=== PATIENT | female | born 1995 ===

== ENCOUNTER 2018-03-26 13:19 | Emergency (ER) | payer SELFPAY ==
[2018-03-26 13:40] VITALS: RESP 18; O2SAT 100
--- NOTE | 2018-03-26 13:45 | ED PDOC ---
HPI: Female Pain Time Seen by Provider: 03/26/18 13:45 Chief Complaint (Nursing): Abdominal Pain Chief Complaint (Provider): with pain and vomiting History Per: Patient Additional Complaint(s): 21-year-old female currently 15 weeks presents with persistent nausea and vomiting that has been present for the duration of the thus far. Patient states that vomiting has worsened in the last couple of days and cannot even keep down sips of water or Gatorade. Patient was seen at women's clinic at [facility] and was given dye creatures but this did not help. She also complains of mild abdominal pain with no vaginal bleeding. Patient is PMD: none Past Medical History Reviewed: Historical Data, Nursing Documentation, Vital Signs Vital Signs: Last Vital Signs Temp 98.4 F 03/26/18 13:35 Pulse 94 H 03/26/18 13:35 Resp 18 03/26/18 13:35 BP 99/66 L 03/26/18 13:35 Pulse Ox 100 03/26/18 13:35 - Medical History PMH: No Chronic Diseases - Surgical History Surgical History: No Surg Hx - Family History Family History: States: No Known Family Hx - Living Arrangements Living Arrangements: With Family - Social History Current smoker - smoking cessation education provided: No Alcohol: None Drugs: Denies - Home Medications Home Medications: Ambulatory Orders Medication Instructions Recorded Metoclopramide [Reglan] 10 mg PO Q6 PRN #30 tab 03/26/18 - Allergies Allergies/Adverse Reactions: Allergies Allergy/AdvReac Type Severity Reaction Status Date / Time No Known Allergies Allergy Verified 03/26/18 13:35 Review of Systems ROS Statement: Except As Marked, All Systems Reviewed And Found Negative Constitutional: Negative for: Fever Gastrointestinal: Positive for: Nausea, Vomiting, Abdominal Pain Genitourinary Female: Negative for: Dysuria, Vaginal Discharge, Vaginal Bleeding Physical Exam - Reviewed Nursing Documentation Reviewed: Yes Vital Signs Reviewed: Yes - Physical Exam Appears: Positive for: Well, Non-toxic, No Acute Distress Skin: Positive for: Normal Color. Negative for: Rash Eye Exam: Positive for: Normal appearance Cardiovascular/Chest: Positive for: Regular Rate, Rhythm Respiratory: Positive for: Normal Breath Sounds. Negative for: Wheezing, Respiratory Distress Gastrointestinal/Abdominal: Positive for: Soft, Other (Nontender gravid abdomen ). Negative for: Tenderness Back: Negative for: L CVA Tenderness, R CVA Tenderness Extremity: Positive for: Normal ROM Neurologic/Psych: Positive for: Alert, Oriented - Laboratory Results Result Diagrams: 03/26/18 15:30 03/26/18 15:30 Urine POC: Positive Urine dip results: Positive for: Leukocyte Esterase, Ketones, Protein - ECG O2 Sat by Pulse Oximetry: 100 Pulse Ox Interpretation: Normal - Other Rad OB US X-Ray: Read By Radiologist X-Ray Interpretation: 12 wk, 5 days IUP, FH 163, no abnormality noted, no free fluid Medical Decision Making Medical Decision Makin22 year old female with pain, nausea and vomiting Plan: Urine dip CBC CMP Beta Lipase IVF Pelvic OB US IV reglan Patient is aware of all diagnostic testing results, all questions answered. Patient feels much better after Reglan dose. She is tolerating sips of water. Patient given prescription for Reglan and was advised to follow-up with [facility] next week. Disposition - Clinical Impression Clinical Impression: Abdominal pain during , Hyperemesis gravidarum - Patient ED Disposition Is Patient to be Admitted: No Counseled Patient/Family Regarding: Studies Performed, Diagnosis, Need For Followup, Rx Given - Disposition Referrals: [facility] [Outside] Disposition: Routine/Home Disposition Time: 18:04 Condition: STABLE Additional Instructions: Take prescription meds as directed. Follow bland diet and drink plenty of fluids. Follow-up with [facility] in 2-3 days. Prescriptions: Metoclopramide [Reglan] 10 mg PO Q6 PRN #30 tab PRN Reason: Nausea/Vomiting Instructions: Nausea and Vomiting of , - The Fourth Month Forms: [employer] (Bulgarian) Print Language: PUERTO RICAN Results - Lab Results Lab Results: 03/26/18 03/26/18 15:30 15:30 WBC 6.2 RBC 4.14 Hgb 12.1 Hct 35.4 MCV 85.4 MCH 29.2 MCHC 34.1 RDW 13.4 Plt Count 218 MPV 8.3 Neut % (Auto) 74.0 Lymph % (Auto) 20.4 Dewitt % (Auto) 4.9 Eos % (Auto) 0.4 Baso % (Auto) 0.3 Neut # (Auto) 4.6 Lymph # (Auto) 1.3 Dewitt # (Auto) 0.3 Eos # (Auto) 0.0 Baso # (Auto) 0.0 Sodium 138 Potassium 3.9 Chloride 104 Carbon Dioxide 25 Anion Gap 13 BUN 11 Creatinine 0.6 L Est GFR ( Amer) > 60 Est GFR (Non-Af Amer) > 60 Random Glucose 88 Calcium 9.9 Total Bilirubin 0.4 AST 39 H ALT 59 H Alkaline Phosphatase 51 Total Protein 8.3 H Albumin 4.4 Globulin 3.9 Albumin/Globulin Ratio 1.1 Lipase 33
[2018-03-26] MEDS ORDERED: Sodium Chloride 0.9% 1,000 ML IV STA (14:52)
[2018-03-26 15:48] LABS: BASO % 0.3 % (0.0-2.0); EOS % 0.4 % (0.0-4.0); HEMOGLOBIN 12.1 g/dL (12.0-16.0); LYMPH # 1.3 K/uL (1.0-4.3); LYMPH % 20.4 % (20.0-40.0); MEAN CELL VOLUME 85.4 fl (81.0-99.0); MEAN CORPUSCULAR HEMOGLOBIN 29.2 pg (27.0-31.0); MEAN CORPUSCULAR HGB CONC 34.1 g/dL (33.0-37.0); MEAN PLATELET VOLUME 8.3 fl (7.2-11.7); MONO # 0.3 K/uL (0.0-0.8); MONO % 4.9 % (0.0-10.0); NEUT # 4.6 K/uL (1.8-7.0); NRBC % 0.1 % (0.0-0.0); RBC 4.14 Mil/uL (3.80-5.20); RED CELL DISTRIBUTION WIDTH 13.4 % (11.5-14.5); WHITE BLOOD COUNT 6.2 K/uL (4.8-10.8)
[2018-03-26 15:53] LABS: ALB/GLOB RATIO 1.1 (1.0-2.1); ALBUMIN 4.4 g/dL (3.5-5.0); ALT/SGPT 59 U/L (9-52); AST/SGOT 39 U/L (14-36); BLOOD UREA NITROGEN 11 mg/dl (7-17); CALCIUM 9.9 mg/dL (8.4-10.2); GFR NON-AFRICAN AMERICAN > 60; LIPASE 33 U/L (23-300)
--- NOTE | 2018-03-26 17:33 | US ---
Date of service: 03/26/2018 PROCEDURE: Limited obstetrical ultrasound HISTORY: 15 weeks, abd pain COMPARISON: None TECHNIQUE: Standard protocol for this study/examination. FINDINGS: LMP: 12/06/2017 Prior examinations from the current : None. TECHNIQUE: Real-time 2D imaging, duplex and color Doppler. FINDINGS: Cardiac activity: Present Rate: 163 BPM Measurements: [place] rump length: 6.35 cm Gestational age based on CRL 12 weeks 5 days JANICE based on LMP: 09/12/2018 JANICE based on biometry: 10/03/2018 Yolk sac not identified Cervix: No Cervical abnormalities: Negative examination for cervical dilatation or effacement. Closed cervix measuring cm Subchorionic hemorrhage: None UTERUS: cm. ADNEXA: Right: Not visible Left: Not visible Fluid in the cul-de-sac: None IMPRESSION: 12 weeks 5 days live intrauterine gestation.
[2018-03-26 18:54] VITALS: BP 110/74; PULSE 84; TEMP 98.6
== END 2018-03-26 18:56 | disposition home or self-care (01) ==
LOC: H.ER 13:19
DX: O26.892 Other specified pregnancy related conditions, second trimester (principal); O21.0 Mild hyperemesis gravidarum; Z3A.15 15 weeks gestation of pregnancy
CPT/HCPCS: 76815; 80053; 81025; 83690; 85025; 87086; 96374; 99283; J2765; J7030

== ENCOUNTER 2018-05-08 16:29 | Emergency (ER) | payer SELFPAY ==
--- NOTE | 2018-05-09 08:50 | OBDCSUM ---
Datetime: 05/08/2018 17:12 Discharge Diagnosis, Provider: False Labor - Undelivered Discharge Comment, Provider: Vaginitis - terazol 7
[2018-05-09 11:22] VITALS: BP 119/72; PULSE 89; TEMP 98.7
== END 2018-05-08 17:15 | disposition home or self-care (01) ==
LOC: H.EROB2 16:29
DX: O34.62 Maternal care for abnormality of vagina, second trimester (principal); N89.8 Other specified noninflammatory disorders of vagina; Z3A.22 22 weeks gestation of pregnancy

== ENCOUNTER 2018-09-01 13:43 | Emergency (ER) | payer SELFPAY ==
--- NOTE | 2018-09-01 13:48 | OBHP ---
Datetime: 09/01/2018 13:42 IP Adm Impression: , intrauterine ; No Active Labor IP Admit Plan: Discharge home Admit Comment, IP Provider: The patient is a 22-year-old 2 para 1 last menstrual period December 06, 2018 date of due date September last September 29, 2018. Patient presents to labor and delivery for steroids patient has an its anticipated delivery date at 37 weeks repeat patient reports good movement no vaginal bleeding no leakage of fluid Past medical history none Medications vitamins Past surgical history operative delivery No known drug allergies Social history denies alcohol tobacco use Review of systems patient denies headache chest pain shortness of breath palpitations nausea vomit ing diarrhea vaginal bleeding heat or cold intolerance easy bruisability musculoskeletal or neurologi uday complaints Intrauterine at 36 weeks Patient for steroids External monitor Observation Discharge home Pelvic Type - PN: Adequate Extremities - PN: Not Done Abdomen - PN: Normal Back - PN: Not Done Breast - PN: Not Done Lungs - PN: Normal Heart - PN: Normal Thyroid - PN: Normal Neurologic - PN: Normal HEENT - PN: Normal General - PN: Normal EGA AdmitDate IP: 36.0 Vital Signs Provider: Reviewed IP Chief Complaint: Other Genitourinary Exam: Not Done DTRs - PN: Not Done Datetime: 05/08/2018 17:01 FHR - Baseline A Provider: 140 Comments, ACOG Physical Exam: Pt is not acute distress Hear s1/s2 heard no extra heart sound Lung clear Abd: Classic surgical scar noted, mild tenderness upon deep palation of RLQ no rebound tenderness, no bal/psoas/obterator sign, BS + Pelvic No lesion noted, upon speculum exam Thick cottage cheese discharge Gestation - Est Wks by US: 22.5 Pool Provider: Negative
[2018-09-01 13:51] VITALS: BMI 30.2
[2018-09-01] MEDS ORDERED: Betamethasone Soluspan 30 mg/5mL Inj Susp IM SCH (14:00)
[2018-09-02 08:18] VITALS: BP 104/75; PULSE 106
== END 2018-09-01 14:35 | disposition home or self-care (01) ==
LOC: H.EROB2 13:43 → H.L&D 13:45 → H.EROB2 14:35
DX: O09.293 Supervision of pregnancy with other poor reproductive or obstetric history, third trimester (principal); Z87.59 Personal history of other complications of pregnancy, childbirth and the puerperium; Z3A.37 37 weeks gestation of pregnancy; Z23 Encounter for immunization
CPT/HCPCS: 96372; 99281; J0702

== ENCOUNTER 2018-09-02 13:48 | Emergency (ER) | payer SELFPAY ==
[2018-09-01 13:51] VITALS: BMI 30.2
[2018-09-02] MEDS: Betamethasone Soluspan 30 mg/5mL Inj Susp IM ONE (14:23)
[2018-09-02 18:45] VITALS: BP 103/64; PULSE 94; TEMP 98.1; O2SAT 99
== END 2018-09-02 14:30 | disposition home or self-care (01) ==
LOC: H.EROB2 13:48
DX: O26.93 Pregnancy related conditions, unspecified, third trimester (principal); O09.93 Supervision of high risk pregnancy, unspecified, third trimester; Z3A.36 36 weeks gestation of pregnancy; Z23 Encounter for immunization
CPT/HCPCS: 96372; 99281; J0702

== ENCOUNTER 2018-09-08 07:05 | Inpatient (IN) | payer MEDICAID, SELFPAY ==
[2018-09-08 07:51] VITALS: BMI 30.9
[2018-09-08] MEDS: Lactated Ringer's 1,000 ML IV ONE ×2 (07:53→08:30)
[2018-09-08 08:15] LABS: BASO % 0.4 % (0.0-2.0); EOS # 0.1 K/uL (0.0-0.7); EOS % 0.6 % (0.0-4.0); HEMOGLOBIN 10.7 g/dL (12.0-16.0); LYMPH # 2.2 K/uL (1.0-4.3); LYMPH % 21.5 % (20.0-40.0); MEAN CELL VOLUME 88.5 fl (81.0-99.0); MEAN CORPUSCULAR HEMOGLOBIN 29.9 pg (27.0-31.0); MEAN CORPUSCULAR HGB CONC 33.8 g/dL (33.0-37.0); MONO # 0.6 K/uL (0.0-0.8); MONO % 5.7 % (0.0-10.0); NEUT # 7.3 K/uL (1.8-7.0); NEUT % 71.8 % (50.0-75.0); NRBC % 0.1 % (0.0-0.0); RBC 3.56 Mil/uL (3.80-5.20); WHITE BLOOD COUNT 10.2 K/uL (4.8-10.8)
[2018-09-08] MEDS ORDERED: Lactated Ringer's 1,000 ML IV ONE (09:00)
[2018-09-08] MEDS ORDERED: ceFAZolin 2 GM in Sodium Chloride 0.9% 100 ML IVPB ONE (09:00)
[2018-09-08] MEDS ORDERED: OXYTOCIN/0.9 % NS 20 UNIT/1,000 ML BAG IV ONE (09:00)
[2018-09-08] MEDS ORDERED: Oxytocin 30 UNIT in NS 500 ml 30 UNITS/500 ML BAG IV ONE (09:00)
[2018-09-08 10:48] VITALS: RESP 18; O2SAT 100
[2018-09-08] MEDS ORDERED: Morphine 5 mg/10 ml preservative-free Inj(Duramorph) ONE (12:41)
[2018-09-08] MEDS ORDERED: Oxycodone/Acetaminophen 5/325 mg Tab PO PRN ×3 (13:43→16:55)
[2018-09-08] MEDS ORDERED: Acetaminophen-Codeine 300/30 mg Tab PO PRN ×2 (13:43→16:38)
[2018-09-08] MEDS ORDERED: Lactated Ringer's 1,000 ML IV SCH (20:15)
[2018-09-09 06:44] LABS: HEMOGLOBIN 9.5 g/dL (12.0-16.0); MEAN CELL VOLUME 88.8 fl (81.0-99.0); MEAN CORPUSCULAR HEMOGLOBIN 30.2 pg (27.0-31.0); RBC 3.13 Mil/uL (3.80-5.20); RED CELL DISTRIBUTION WIDTH 13.7 % (11.5-14.5); WHITE BLOOD COUNT 10.6 K/uL (4.8-10.8)
--- NOTE | 2018-09-09 07:24 | OP ---
PROCEDURE DATE: 09/08/2018 PREOPERATIVE DIAGNOSIS: Intrauterine at 37 weeks, history of previous classical incision. POSTOPERATIVE DIAGNOSIS: Intrauterine at 37 weeks, history of previous classical incision. OPERATION PERFORMED: Repeat delivery via vertical skin incision. SURGEON: Abelardo Alston MD GERIATRIC PERSONAL CARE AIDE: Dr. Faiza Marr. ESTIMATED BLOOD LOSS: 800 mL. URINE OUTPUT: Hernandes catheter put out approximately 100 mL of clear urine. INTRAVENOUS FLUID INTAKE: The patient received 1400 mL of D5 LR intraoperatively. OPERATIVE FINDINGS: Female infant, vertex presentation, weighing 2845 g. Normal uterus, tubes, and ovaries were identified. Dr. Faiza Marr was the assistant head cashier in the procedure. She helped create exposure, obtaining hemostasis. She was helpful in delivering the and closure of the patient. The procedure would not have been possible without her assistance. DESCRIPTION OF PROCEDURE: After informed consent was obtained, the patient was taken to the operating room where she was given spinal anesthesia. She was then prepped and draped in a normal sterile fashion with a leftward tilt. A vertical skin incision was then made with a scalpel and carried down to the underlying layer of fascia. The fascia was nicked in the midline. The fascial incision was then extended superiorly and inferiorly with good visualization of the bladder. The rectus muscles were then in the midline. The peritoneum was identified and entered sharply with the Metzenbaum scissors. The peritoneal incision was then extended superiorly and inferiorly with good visualization of the bladder. The bladder blade was then inserted. The vesicouterine peritoneum was identified and entered sharply with the Metzenbaum scissors. The incision was then extended laterally. The bladder flap was created digitally. The bladder blade was then re-adjusted and a low transverse incision was made with the scalpel. The uterine incision was then extended laterally with bandage scissors. The infant's head was then delivered atraumatically. The nose and mouth were suctioned with DeLee suction trap. The cord was clamped and cut. The was handed off to the awaiting pediatricians. The placenta was then removed manually. The uterus was exteriorized and cleared of all clots and debris. The uterine incision was repaired with 0 Vicryl in a running locked fashion. The second layer of the same suture was used to obtain excellent hemostasis. The abdomen was then copiously irrigated. The irrigant was removed with a suction device. The incision was noted to be hemostatic. The uterus was returned to the abdomen. The gutters were then cleared of all clots and debris. A mass closure was performed using PDS in a running fashion. Subcuticular stitch of 3-0 chromic was used to approximate Camper's and Padmini's fascia and then the skin was closed with gasper. All sponge, lap, needle, and instrument counts were correct x2, and the patient was taken to the recovery room in awake and stable condition. Abelardo Alston MD
--- NOTE | 2018-09-09 08:19 | OBADHP ---
Datetime: 09/02/2018 14:04 IP Chief Complaint Other: beta IM Admit Comment, IP Provider: 22 yo 36.1wk present for sec dose of betamethasone. Otherwise patie nt have no complains. Patient receiving betamethasone due to first born was on 32 week, no complicati on during , Patient denies vaginal bleed, discharge, contraction, or concern. PMH none Medications vitamins Past surgical No known drug allergies Social history denies alcohol tobacco use Review of systems negative except if mention in HPI Intrauterine at 36 weeks Patient for steroids dose [address] Pantoja PGy1 case discussed with attending Pelvic Type - PN: Not Done Extremities - PN: Normal Abdomen - PN: Normal Back - PN: Normal Breast - PN: Not Done Lungs - PN: Normal Heart - PN: Normal Thyroid - PN: Normal Neurologic - PN: Normal HEENT - PN: Normal General - PN: Normal Comments, ACOG Physical Exam: heart no extra heart sound lung clear abd nontender bs+ Vital Signs Provider: Reviewed; Within Normal Limits Genitourinary Exam: Normal DTRs - PN: Not Done IP Admit Plan: Observation/Evaluation Datetime: 09/01/2018 13:42 IP Chief Complaint: Other EGA AdmitDate IP: 36.0 IP Adm Impression: , intrauterine ; No Active Labor Datetime: 05/08/2018 17:01 FHR - Baseline A Provider: 140 Gestation - Est Wks by US: 22.5 Pool Provider: Negative
[2018-09-09] MEDS ORDERED: Multivitamin With Minerals Tab PO SCH (09:00)
[2018-09-09] MEDS: Multivitamin With Minerals Tab PO SCH (09:51)
--- NOTE | 2018-09-09 13:46 | OBPPN ---
Datetime: 09/09/2018 06:11 PP Pain Prov: Within normal limits PP Nausea Prov: Denies PP Flatus Prov: Yes PP BM Prov: No PP Heart Prov: Normal PP Lungs Prov: Normal PP Comments Phys Exam Prov: see progress note PP Impression Prov: Normal progression PP Plan Prov: Continue present management PP Progress Note Prov: S: 23 YO female , s/p at GA 37 wks. (Repeat ), toda y POD 1. Patient seen and examined at bedside this morning. Patient has no acute complaints, reports that the pain is controlled with pain medication. Patient has not started to ambulate yet after surge ry. She is tolerating oral diet. Lochia like menses in volume. +Flatus, -BM. Denies fevers, chills, dizziness, chest pain, SOB, N/V, hematuria or dysuria. VS: stable GEN: NAD Cardio: RRR, S1S2 present, no murmurs noted Lungs: clear breath sounds b/l, no wheezing Abdomen: BS+, appropriate tenderness to palpation, incision covered by dressing clean and intact. Uterus is firm and at the level of the umbilicus. Appropriate tenderness EXT: No edema, Tere's negative NEURO/PSYCH: AAOx3, no grossly focal deficits, preserved affect and mood. A/P: 23 YO female , s/p at GA 37 wks. (Repeat ), today POD 1. Pt is stable, a febrile, tolerating pain with medication, hemodynamically stable. Normal progression after . P: encouraged ambulation Percocet 5/325mg q4h Motrin 600mg po q6h for pain as per pain scale Senakot 17.2mg po QHS Encourage Continue vit Case reviewed and discussed with attending Rivka Stout MD PGY1 Patient seen and evaluated by me this am. Agree with above note. Ambulation encouraged. --Dr. Ngo Vital Signs Provider PP: Reviewed; Within Normal Limits
--- NOTE | 2018-09-10 07:18 | OBPPN ---
Datetime: 09/10/2018 05:53 PP Pain Prov: Within normal limits PP Nausea Prov: Denies PP Flatus Prov: Yes PP BM Prov: Yes PP Heart Prov: Normal PP Lungs Prov: Normal PP Extremities Prov: Normal PP Comments Phys Exam Prov: see progress note PP Impression Prov: Normal progression PP Plan Prov: Continue present management PP Progress Note Prov: S: 23 YO female , s/p at GA 37 wks. (Repeat ), toda y POD 2. Patient seen and examined at bedside this morning. Patient has no acute complaints, reports that the pain is controlled with pain medication. Patient is ambulating w/o difficulties. Pt is breas tfeeding, she is tolerating regular diet. Lochia like menses in volume. +Flatus, had BM already. Atilio es fevers, chills, dizziness, chest pain, SOB, N/V/D, hematuria or dysuria. O: VS: stable GEN: NAD Cardio: RRR, S1S2 present, no murmurs noted Lungs: clear breath sounds b/l, no wheezing Abdomen: BS+, appropriate tenderness to palpation, incision clean and well approximated with stapl es. Uterus is firm and at the level of the umbilicus. Appropriate tenderness EXT: No edema, Tere's negative NEURO/PSYCH: AAOx3, no grossly focal deficits, preserved affect and mood. A/P: 23 YO female , s/p at GA 37 wks. (Repeat ), today POD 2. Pt is stable, a febrile, pain well controlled with medication, hemodynamically stable. Normal progression after . -Ambulation encouraged -Percocet 5/325mg q4h -Motrin 600mg po q6h for pain as per pain scale -Senakot 17.2mg po QHS -Encourage -Continue vit -anticipate DC home tomorrow Case reviewed and discussed with attending Rivka Stout MD PGY1 OB Hospitalist Addendum: Pt seen and examined by me. Agree w/ above. POD 2 s/p repeat c/s, doing well. Continue routine care. Discharge home tomorrow. (ES) Vital Signs Provider PP: Reviewed
[2018-09-10] MEDS: Multivitamin With Minerals Tab PO SCH (08:40)
--- NOTE | 2018-09-10 10:26 | OBADHP ---
Datetime: 09/08/2018 11:30 Admit Comment, IP Provider: HPI: Gaby is a 23 year old at 37.0 weeks here for scheduled C-sect ion. Her surgery was scheduled for 37 weeks due to a history of a previous vertical incision in her u terus. Reports good movement, no LOF or vaginal bleeding. History Previous delivery at 32 weeks in her home country of [place] PMH Denies PSH Classical Medications PNV Allergies NKDA Social Denies tobacco, alcohol or drug use Physical Exam Vitals reviewed See exam section ASSESSMENT/PLAN: 23 year old at 37.0 weeks here for repeat , history of a previous c lassical incision. - Initiate protocol - Patient had GBS positive urine culture early in , no ROM Faiza Marr MD OB Fellow Extremities - PN: Normal Lungs - PN: Normal Heart - PN: Normal HEENT - PN: Normal General - PN: Normal Presentation-Admit: Vertex IP Fetus A Comments: Reactive NST FHR - Baseline A Provider: 130 Comments, ACOG Physical Exam: Adbomen: patient has a vertical scar extending from just superior to t he pubis to just inferior to the umbilicus Gestation - Est Wks by US: 37.0 Vital Signs Provider: Reviewed; Within Normal Limits IP Chief Complaint: Scheduled Section NICHD Variability Prov Fetus A: Moderate 6-25bpm NICHD Accel Fetus A IP Provider: [id number] NICHD Decel Fetus A IP Provider: None Genitourinary Exam: Normal EGA AdmitDate IP: 37.0 IP Adm Impression: Term, intrauterine IP Admit Plan: Admit to unit; Initiate Section protocol
[2018-09-11] MEDS ORDERED: Measles, Mumps, and Rubella 0.5 ML VIAL SC ONE (07:36)
[2018-09-11] MEDS: Multivitamin With Minerals Tab PO SCH (09:46)
--- NOTE | 2018-09-11 10:25 | OBDCSUM ---
Datetime: 09/11/2018 06:07 Discharged to, Provider: Home Follow up at, Provider: Dr Barton Disch Instr Diet: Regular Discharge Instructions, Provider: Routine instructions given Discharge Diagnosis, Provider: Term Delivered Follow up in weeks, Provider: 2 days Contraception discussed, Prov: Yes Disch Activity Restrictions: No lifting; Minimize stair-climbing; Nothing in vagina - Evan, t alec puckett Discharge Comment, Provider: 23 YO s/p C-sec of baby girl on 09/08/18 at 37 weeks EGA. : male, Wt. 2845 gm, 9/9 Post- D/C Summary: No OB complications. No complications during post- period. Lochia i s less than menses. Pt able to pass flatus, and had BM already, voiding well and able to ambulate wit hout difficulty. Tolerating regular diet w/o N/V. Fundus firm below umbilicus level. Pt is hemodynami abena stable (EBL on 800cc). H/H: 9.5/27.8 Asymptomatic anemia , hemodynamically stable Discharge Instructions given to patient: Encourage Continue with PNV 1 tab p.o q/day Ibuprofen 400 PO Q6h PRN pain Colace 100 mg BID prn constipation Ambulatory with caution, nothing per vagina/sex for 4 weeks, no heavy lifting, avoid stairs, if ex cessive bleeding or fever without relief from Tylenol go to ED ED precautions: If excessive bleeding, pain that does not get relief, fever >100.4, palpitations, SOB, CP or other concerning symptom go to the ED. PT was urged if feeling sad, mood swing, depression, neglect of baby, suicidal thoughts, homicidal thoughts go to ER or call 911 for help Follow-up at [facility] for wound check on 09/13/18 and 09/20/[address] Barton, then in 6 weeks for post - check. Contraception after Delivery: Undecided
--- NOTE | 2018-09-11 10:26 | OBPPN ---
Datetime: 09/11/2018 06:04 PP Pain Prov: Within normal limits PP Nausea Prov: Denies PP Flatus Prov: Yes PP BM Prov: Yes PP Heart Prov: Normal PP Lungs Prov: Normal PP Comments Phys Exam Prov: see note PP Impression Prov: Normal progression PP Plan Prov: Continue present management; Discharge PP Progress Note Prov: S: 23 YO female , s/p at GA 37 wks. (Repeat ), toda y POD 3. Patient seen and examined at bedside this morning. Patient has no acute complaints, reports that the pain is controlled with pain medication. Patient is ambulating w/o difficulties. Pt is breas t and bottle feeding, she is tolerating regular diet. Lochia like menses in volume. +Flatus, +BM alre manuel. Denies fevers, chills, dizziness, chest pain, SOB, N/V/D, hematuria or dysuria. VS: stable GEN: NAD Cardio: RRR, S1S2 present, no murmurs noted Lungs: clear breath sounds b/l, no wheezing Abdomen: BS+, appropriate tenderness to palpation, incision clean and well approximated. Uterus is firm and at the level of the umbilicus. Appropriate tenderness EXT: No edema, Tere's negative NEURO/PSYCH: AAOx3, no grossly focal deficits, preserved affect and mood. A/P: 23 YO female , s/p at GA 37 wks. (Repeat ), today POD 3. Pt is stable, d oing well, afebrile, tolerating pain with medication, hemodynamically stable. Normal progr ession after . DC home today -encouraged ambulation -Percocet 5/325mg q4h -Motrin 600mg po q6h for pain as per pain scale -Senakot 17.2mg po QHS -Encourage -Continue vit Case reviewed and discussed with attending Rivka Stout MD PGY1 OB Hospitalist on-call. Pt seen on rounds. Agree with note. Dishcarge home and follow up in 1-2 w KERRIEO Vital Signs Provider PP: Reviewed; Within Normal Limits
[2018-09-11 18:58] VITALS: BP 117/79; PULSE 75; TEMP 98.5
== END 2018-09-11 13:40 | disposition home or self-care (01) | DRG 540 ==
LOC: H.EROB2 07:05 → H.L&D 08:31 → H.OB/GYN 17:13
PROVIDERS: ADMIT Obstetrics & Gynecology; ATTEND Obstetrics & Gynecology
PROC: 10D00Z1 Extraction of Products of Conception, Low, Open Approach (ICD-10-PCS; principal; 2018-09-08)
PROC: 4A1HXCZ Monitoring of Products of Conception, Cardiac Rate, External Approach (ICD-10-PCS; 2018-09-08)
DX: O34.211 Maternal care for low transverse scar from previous cesarean delivery (principal); N85.8 Other specified noninflammatory disorders of uterus; Z37.0 Single live birth; O99.824 Streptococcus B carrier state complicating childbirth; Z3A.37 37 weeks gestation of pregnancy

== ENCOUNTER 2018-10-02 23:59 | Inpatient (IN) | payer MEDICAID ==
[2018-10-02 23:59] VITALS: BMI 30.9
[2018-10-03] MEDS ORDERED: Sodium Chloride 0.9% 1,000 ML IV STA (00:26)
[2018-10-03 01:14] LABS: SQUAMOUS EPITHIAL < 1 /hpf (0-5); URINE BACTERIA RARE (<OCC); URINE BILIRUBIN NEGATIVE (NEGATIVE); URINE BLOOD SMALL (NEGATIVE); URINE CLARITY SLIGHTY-CLOUDY (Clear); URINE COLOR YELLOW (YELLOW); URINE GLUCOSE (UA) NEG (NEGATIVE); URINE LEUKOCYTE ESTERASE MOD Leu/uL (Negative); URINE PROTEIN NEGATIVE (NEGATIVE); URINE UROBILINOGEN 0.2-1.0 mg/dL (0.2-1.0)
[2018-10-03 01:20] LABS: BASO % 0.4 % (0.0-2.0); EOS # 0.1 K/uL (0.0-0.7); EOS % 1.6 % (0.0-4.0); HEMOGLOBIN 12.1 g/dL (12.0-16.0); LYMPH # 2.1 K/uL (1.0-4.3); LYMPH % 28.5 % (20.0-40.0); MEAN CELL VOLUME 87.7 fl (81.0-99.0); MEAN CORPUSCULAR HEMOGLOBIN 28.6 pg (27.0-31.0); MEAN CORPUSCULAR HGB CONC 32.6 g/dL (33.0-37.0); MEAN PLATELET VOLUME 8.4 fl (7.2-11.7); MONO # 0.4 K/uL (0.0-0.8); MONO % 5.8 % (0.0-10.0); NEUT # 4.7 K/uL (1.8-7.0); NEUT % 63.7 % (50.0-75.0); NRBC % 0.1 % (0.0-0.0); RBC 4.24 Mil/uL (3.80-5.20); RED CELL DISTRIBUTION WIDTH 14.1 % (11.5-14.5); WHITE BLOOD COUNT 7.4 K/uL (4.8-10.8)
--- NOTE | 2018-10-03 01:42 | ED PDOC ---
HPI: Abdomen Time Seen by Provider: 10/03/18 00:14 Chief Complaint (Nursing): Abdominal Pain Chief Complaint (Provider): Abdominal Pain History Per: Patient History/Exam Limitations: no limitations Onset/Duration Of Symptoms: Days (3) Current Symptoms Are (Timing): Constant Pain Scale Rating Of: 9 Location Of Pain/Discomfort: RUQ, Epigastric Quality Of Discomfort: Sharp Associated Symptoms: Nausea Additional Complaint(s): 23 year old female presents to the ED for an evaluation of abdominal pain onset for 3 days. Patient is status post and she reports of sharp, constant abdominal pain which she rates 9/10. She reports the pain is radiating to her back with nausea. Otherwise, she denies fever, cough, shortness of breath, vomiting or any other symptoms. PMD: no family provider Past Medical History Reviewed: Historical Data, Nursing Documentation, Vital Signs Vital Signs: Last Vital Signs Temp 97.7 F 10/03/18 00:04 Pulse 66 10/03/18 00:04 Resp 16 10/03/18 00:04 BP 132/69 10/03/18 00:04 Pulse Ox 100 10/03/18 00:04 Primary Care Provider: FAMILY PROVIDER,NO - Medical History PMH: No Chronic Diseases Denies: Depression, Diabetes, HTN - Surgical History Surgical History: - Family History Family History: States: Unknown Family Hx - Social History Current smoker - smoking cessation education provided: No Alcohol: None Drugs: Denies - Home Medications Home Medications: Ambulatory Orders Medication Instructions Recorded Ferrous Sulfate [Feosol] 325 mg PO DAILY 10/03/18 Oxycodone HCl/Acetaminophen 5 - 325 mg PO DAILY 10/03/18 [Endocet 5-325 Tablet] - Allergies Allergies/Adverse Reactions: Allergies Allergy/AdvReac Type Severity Reaction Status Date / Time No Known Allergies Allergy Verified 10/03/18 00:04 Review of Systems ROS Statement: Except As Marked, All Systems Reviewed And Found Negative Constitutional: Negative for: Fever Cardiovascular: Negative for: Chest Pain Respiratory: Negative for: Shortness of Breath Gastrointestinal: Positive for: Nausea, Abdominal Pain. Negative for: Vomiting Physical Exam - Reviewed Nursing Documentation Reviewed: Yes Vital Signs Reviewed: Yes - Physical Exam Appears: Positive for: Uncomfortable Head Exam: Positive for: ATRAUMATIC, NORMAL INSPECTION, NORMOCEPHALIC Skin: Positive for: Normal Color, Warm, Dry. Negative for: Rash Eye Exam: Positive for: EOMI, Normal appearance, PERRL ENT: Positive for: Normal ENT Inspection Neck: Positive for: Normal, Painless ROM, Supple. Negative for: Decreased ROM Cardiovascular/Chest: Positive for: Regular Rate, Rhythm. Negative for: Murmur Respiratory: Positive for: Normal Breath Sounds. Negative for: Decreased Breath Sounds, Wheezing, Respiratory Distress Gastrointestinal/Abdominal: Positive for: Soft, Tenderness (epigastric and RUQ) Back: Positive for: Normal Inspection Extremity: Positive for: Normal ROM. Negative for: Tenderness, Pedal Edema, Deformity Neurological/Psych: Positive for: Awake, Alert, Normal Tone, Oriented (x3). Negative for: Motor/Sensory Deficits - Laboratory Results Result Diagrams: 10/03/18 12:35 10/03/18 12:35 Lab Results: Urine Color Yellow (YELLOW) 10/03/18 00:55 Urine Clarity Slighty-cloudy (Clear) 10/03/18 00:55 Urine pH 5.0 (5.0-8.0) 10/03/18 00:55 Ur Specific [place] 1.019 (1.003-1.030) 10/03/18 00:55 Urine Protein Negative mg/dL (NEGATIVE) 10/03/18 00:55 Urine Glucose (UA) Neg mg/dL (NEGATIVE) 10/03/18 00:55 Urine Ketones Negative mg/dL (NEGATIVE) 10/03/18 00:55 Urine Blood Small (NEGATIVE) 10/03/18 00:55 Urine Nitrate Negative (NEGATIVE) 10/03/18 00:55 Urine Bilirubin Negative (NEGATIVE) 10/03/18 00:55 Urine Urobilinogen 0.2-1.0 mg/dL (0.2-1.0) 10/03/18 00:55 Ur Leukocyte Esterase Mod [place]/uL (Negative) 10/03/18 00:55 Urine RBC (Auto) 5 /hpf (0-3) H 10/03/18 00:55 Urine Microscopic WBC 8 /hpf (0-5) H 10/03/18 00:55 Ur Squamous Epith Cells < 1 /hpf (0-5) 10/03/18 00:55 Urine Bacteria Rare (<OCC) 10/03/18 00:55 - ECG O2 Sat by Pulse Oximetry: 100 (RA) Pulse Ox Interpretation: Normal Medical Decision Making Medical Decision Making: Time: 24 Impression: 23yo female with epigastric and right upper quadrant pain Plan: CMP Lipase Urine ED urine dipstick CBC w/ differential Normal saline 1000 mls/hr Toradol 30mg Pepcid 20mg Heplock insertion UA Gallbladder US Reevaluation 020 Ultrasound of gallbladder. Indication: Pain. Technique: Real-time ultrasound images were obtained. Findings: Liver measures 17.2 cm. Normal gallbladder wall thickness measuring 2 mm. Distended gallbladder. Cholelithiasis. Sludge in the gallbladder. Negative sonographic Scales. Unremarkable pancreas. Unremarkable aorta. Unremarkable IVC. Unremarkable right kidney. Dilated common bile duct measuring 11 mm. Suspected debris/stones in the distal common bile duct. Impression: Cholelithiasis. Developing acute cholecystitis. Choledocholithiasis. Electronically signed on October 03, 2018 2:01:43 AM EDT by: Cassie Henderson M.D., Certified by ABR, MSK, Neuroradiology [id number] Aleman who advised medical admit with surgical consult vice president supply chain, Dr. Disla at bedside for consult Patient diagnosed with acute cholecystitis and choledocholithiasis and case referred to Dr. Londono for admission. Labs present no clinically significant abnormalities with the exceptions of LFTs and lipase Scribe Attestation: Documented by Colton Wheeler, acting as a scribe for Marck Ko MD Provider Scribe Attestation: All medical record entries made by the Scribe were at my direction and pers onally dictated by me. I have reviewed the chart and agree that the record accurately reflects my personal performance of the history, physical exam, medical decision making, and the department course for this patient. I have also personally directed, reviewed, and agree with the discharge instructions and disposition. Disposition - Clinical Impression Clinical Impression: Cholecystitis - Patient ED Disposition Is Patient to be Admitted: Yes - Disposition Disposition Time: 02:46 Condition: FAIR
[2018-10-03 01:51] LABS: ALB/GLOB RATIO 1.4 (1.0-2.1); ALBUMIN 4.5 g/dL (3.5-5.0); ALT/SGPT 165 U/L (9-52); AST/SGOT 97 U/L (14-36); BLOOD UREA NITROGEN 17 mg/dl (7-17); CALCIUM 9.6 mg/dL (8.4-10.2); GFR NON-AFRICAN AMERICAN > 60; LIPASE 548 U/L (23-300)
--- NOTE | 2018-10-03 02:48 | CP.PCM.CON ---
History of Present Illness - History of Present Illness History of Present Illness: General Surgery Consult for Dr. Aleman Reason for consult: Abd pain, cholelithiasis, choledolcholithiasis, possible gallstone pancreatitis 23 F with no significant PMH presents to [facility] for complaint of abd pain. Patient was seen and evaluated in the ED. Patient states that she has had epigastric and RUQ pain for 3 days which began . Patient states that she has had similar pain to lesser extent especially during . Over the last 3 days pain had gotten progressively worse. She rates pain as moderate to severe located in epigastrium radiating to RUQ. She desribes it as constant and sharp. Patient admits to associated nausea/vomiting with NBNB emesis. She reports that food/drinks aggravates her symptoms while nothing specifically alleviates them. Patient recently had a on 09/08. She is currently breast feeding. Also admits to chills but denies fevers, cp, SOB, palpitations, diarrhea, constipatio n, urinary symptoms. PMD: [facility] OBGYN: Dr. Bangura, post appt on 10/20 PMH: Denies PSH: x 2 ALL: NKDA Social: Denies smoking, EtOH or illicit drug use; currently breast feeding Review of Systems - Review of Systems All systems: reviewed and no additional remarkable complaints except (as per HPI) Past Patient History - Past Social History Alcohol: None Drugs: Denies - CARDIAC Hx Hypertension: No - PSYCHIATRIC Hx Depression: No Meds Allergies/Adverse Reactions: Allergies Allergy/AdvReac Type Severity Reaction Status Date / Time No Known Allergies Allergy Verified 10/03/18 00:04 Physical Exam - Constitutional Appears: Well, Non-toxic, No Acute Distress - Head Exam Head Exam: ATRAUMATIC, NORMOCEPHALIC - Eye Exam Eye Exam: EOMI, Normal appearance Pupil Exam: PERRL - ENT Exam ENT Exam: Mucous Membranes Moist - Respiratory Exam Respiratory Exam: NORMAL BREATHING PATTERN - Cardiovascular Exam Cardiovascular Exam: REGULAR RHYTHM - GI/Abdominal Exam GI & Abdominal Exam: Normal Bowel Sounds, Soft, Tenderness (Epigastrium/RUQ). absent: Distended, Firm, Guarding, Hernia, Rebound, Rigid Additional comments: +Scales's sign - Extremities Exam Extremities exam: Positive for: normal capillary refill, pedal pulses present. Negative for: calf tenderness - Back Exam Back exam: absent: CVA tenderness (L), CVA tenderness (R) - Neurological Exam Neurological exam: Alert, CN II-XII Intact, Oriented x3 - Psychiatric Exam Psychiatric exam: Normal Affect, Normal Mood - Skin Skin Exam: Dry, Intact, Normal Color, Warm Results - Vital Signs Recent Vital Signs: Last Vital Signs Temp 97.7 F 10/03/18 00:04 Pulse 66 10/03/18 00:04 Resp 16 10/03/18 00:04 BP 132/69 10/03/18 00:04 Pulse Ox 100 10/03/18 02:04 - Labs Result Diagrams: 10/03/18 01:02 10/03/18 01:02 Labs: Laboratory Results - last 24 hr 10/03/18 10/03/18 10/03/18 00:55 01:02 01:02 WBC 7.4 RBC 4.24 Hgb 12.1 D Hct 37.2 MCV 87.7 MCH 28.6 MCHC 32.6 L RDW 14.1 Plt Count 254 MPV 8.4 Neut % (Auto) 63.7 Lymph % (Auto) 28.5 [place] % (Auto) 5.8 Eos % (Auto) 1.6 Baso % (Auto) 0.4 Neut # (Auto) 4.7 Lymph # (Auto) 2.1 [place] # (Auto) 0.4 Eos # (Auto) 0.1 Baso # (Auto) 0.0 Sodium 137 Potassium 4.0 Chloride 100 Carbon Dioxide 26 Anion Gap 15 BUN 17 Creatinine 0.8 Est GFR ( Amer) > 60 Est GFR (Non-Af Amer) > 60 Random Glucose 89 Calcium 9.6 Total Bilirubin 0.9 AST 97 H D ALT 165 H D Alkaline Phosphatase 236 H D Total Protein 7.7 Albumin 4.5 Globulin 3.2 Albumin/Globulin Ratio 1.4 Lipase 548 H Urine Color Yellow Urine Clarity Slighty-cloudy Urine pH 5.0 Ur Specific [place] 1.019 Urine Protein Negative Urine Glucose (UA) Neg Urine Ketones Negative Urine Blood Small Urine Nitrate Negative Urine Bilirubin Negative Urine Urobilinogen 0.2-1.0 Ur Leukocyte Esterase Mod Urine RBC (Auto) 5 H Urine Microscopic WBC 8 H Ur Squamous Epith Cells < 1 Urine Bacteria Rare Assessment & Plan - Assessment and Plan (Free Text) Assessment: 23 F who presents with RUQ/epigastric Abd pain, found to have cholelithiasis and choledolcholithiasis on ABUS with mildly elevated lipase due to suspected gallstone pancreatitis Plan: -NPO -IVF -IV abx -PAin control -Anti-emetics PRN -Trend LFTs -f/u GGT -f/u repeat lipase -Possible OR for laparoscopic cholecystectomy -Further recommendations as per Dr. Ash Disla PGY2 - Date & Time Date: 10/03/18 Time: 03:00
[2018-10-03] MEDS ORDERED: Piperacillin/Tazobact 3.375 GM in Sodium Chloride 0.9% 100 ML IV STA (03:18)
[2018-10-03] MEDS ORDERED: Piperacillin/Tazobact 3.375 gm Inj IVPB ONE (03:42)
[2018-10-03] MEDS: Lactated Ringer's 1,000 ML IV SCH ×4 (04:23→21:37)
--- NOTE | 2018-10-03 04:27 | CP.PCM.HP ---
<Prabha Grace - Last Filed: 10/03/18 04:07> History of Present Illness - History of Present Illness History of Present Illness: Pt is a 23 y/o female s/p repeat C section on 09/08/18, presents to ED with complaints of Epigastric and RUQ abdominal pain x3 days associated with nausea and chills. Pt denies fever, diarrhea, dysuria, cp, sob. PMD: none OBGYN: Dr. Bangura, as post appt on 10/20 PMH: Denies PsurgHx: 2 C sections NKDA Social: Denies smoking, EOTH or drug use, currently breast feeding Present on Admission - Present on Admission Any Indicators Present on Admission: No History of DVT/PE: No History of Uncontrolled Diabetes: No Urinary Catheter: No Decubitus Ulcer Present: No Past Patient History - Past Social History Alcohol: None Drugs: Denies - CARDIAC Hx Hypertension: No - PSYCHIATRIC Hx Depression: No Meds Allergies/Adverse Reactions: Allergies Allergy/AdvReac Type Severity Reaction Status Date / Time No Known Allergies Allergy Verified 10/03/18 00:04 Physical Exam - Constitutional Appears: No Acute Distress - Head Exam Head Exam: NORMAL INSPECTION - Eye Exam Eye Exam: Normal appearance. absent: Scleral icterus - ENT Exam ENT Exam: Mucous Membranes Moist - Respiratory Exam Respiratory Exam: Clear to Auscultation Bilateral. absent: Rales, Wheezes - Cardiovascular Exam Cardiovascular Exam: REGULAR RHYTHM, +S1, +S2. absent: Systolic Murmur - GI/Abdominal Exam GI & Abdominal Exam: Normal Bowel Sounds, Soft, Tenderness (Epigastric, RUQ, (+) [place]). absent: Distended, Guarding Additional comments: Midline c section scar, well healed - Extremities Exam Extremities exam: Negative for: pedal edema - Neurological Exam Neurological exam: Alert, Oriented x3 - Psychiatric Exam Psychiatric exam: Normal Affect Results - Vital Signs Recent Vital Signs: Last Vital Signs Temp 97.7 F 10/03/18 00:04 Pulse 66 10/03/18 00:04 Resp 16 10/03/18 00:04 BP 132/69 10/03/18 00:04 Pulse Ox 100 10/03/18 03:45 - Labs Result Diagrams: 10/03/18 01:02 10/03/18 01:02 Labs: Laboratory Results - last 24 hr 10/03/18 10/03/18 10/03/18 00:55 01:02 01:02 WBC 7.4 RBC 4.24 Hgb 12.1 D Hct 37.2 MCV 87.7 MCH 28.6 MCHC 32.6 L RDW 14.1 Plt Count 254 MPV 8.4 Neut % (Auto) 63.7 Lymph % (Auto) 28.5 [place] % (Auto) 5.8 Eos % (Auto) 1.6 Baso % (Auto) 0.4 Neut # (Auto) 4.7 Lymph # (Auto) 2.1 [place] # (Auto) 0.4 Eos # (Auto) 0.1 Baso # (Auto) 0.0 Sodium 137 Potassium 4.0 Chloride 100 Carbon Dioxide 26 Anion Gap 15 BUN 17 Creatinine 0.8 Est GFR ( Amer) > 60 Est GFR (Non-Af Amer) > 60 Random Glucose 89 Calcium 9.6 Total Bilirubin 0.9 AST 97 H D ALT 165 H D Alkaline Phosphatase 236 H D Total Protein 7.7 Albumin 4.5 Globulin 3.2 Albumin/Globulin Ratio 1.4 Lipase 548 H Urine Color Yellow Urine Clarity Slighty-cloudy Urine pH 5.0 Ur Specific [place] 1.019 Urine Protein Negative Urine Glucose (UA) Neg Urine Ketones Negative Urine Blood Small Urine Nitrate Negative Urine Bilirubin Negative Urine Urobilinogen 0.2-1.0 Ur Leukocyte Esterase Mod Urine RBC (Auto) 5 H Urine Microscopic WBC 8 H Ur Squamous Epith Cells < 1 Urine Bacteria Rare Assessment & Plan - Assessment and Plan (Free Text) Assessment: Pt is a 23 y/o female s/p repeat C section on 09/08/18, presents to ED with complaints of Epigastric and RUQ abdominal pain x3 days associated with nausea and chills admitted for Acute Cholecystitis. #Abdominal Pain 2/2 Acute Cholecystitis and Choledocolithiasis - Gall bladder US: Distended gallbladder, dilated CBD 11mm w/ suspected stone in distal CBD, pancreas unremarkable - No systemic signs of infection - AST 97, ALT 165, ALP 236, Lipase 548, T.Bili 0.9 - Surgery Consulted - GI Consulted (may require ERCP if CBD acutely obstructed) - Zosyn - LR at 200cc/hr - Pain management - Zofran prn - NPO for now # S/P C section - Breast feeding, pt advised to pump and dump for now while on Zosyn - Manual Breast Pump ordered Case discussed with Dr. Bry Grace, PGY2 <Jarod Londono - Last Filed: 10/03/18 07:05> Results - Vital Signs Recent Vital Signs: Last Vital Signs Temp 98.3 F 10/03/18 05:08 Pulse 65 10/03/18 05:40 Resp 18 10/03/18 05:40 BP 118/70 10/03/18 05:08 Pulse Ox 100 10/03/18 05:40 - Labs Result Diagrams: 10/03/18 01:02 10/03/18 01:02 Labs: Laboratory Results - last 24 hr 10/03/18 10/03/18 10/03/18 00:55 01:02 01:02 WBC 7.4 RBC 4.24 Hgb 12.1 D Hct 37.2 MCV 87.7 MCH 28.6 MCHC 32.6 L RDW 14.1 Plt Count 254 MPV 8.4 Neut % (Auto) 63.7 Lymph % (Auto) 28.5 [place] % (Auto) 5.8 Eos % (Auto) 1.6 Baso % (Auto) 0.4 Neut # (Auto) 4.7 Lymph # (Auto) 2.1 [place] # (Auto) 0.4 Eos # (Auto) 0.1 Baso # (Auto) 0.0 Sodium 137 Potassium 4.0 Chloride 100 Carbon Dioxide 26 Anion Gap 15 BUN 17 Creatinine 0.8 Est GFR ( Amer) > 60 Est GFR (Non-Af Amer) > 60 Random Glucose 89 Calcium 9.6 Total Bilirubin 0.9 AST 97 H D ALT 165 H D Alkaline Phosphatase 236 H D Total Protein 7.7 Albumin 4.5 Globulin 3.2 Albumin/Globulin Ratio 1.4 Lipase 548 H Urine Color Yellow Urine Clarity Slighty-cloudy Urine pH 5.0 Ur Specific [place] 1.019 Urine Protein Negative Urine Glucose (UA) Neg Urine Ketones Negative Urine Blood Small Urine Nitrate Negative Urine Bilirubin Negative Urine Urobilinogen 0.2-1.0 Ur Leukocyte Esterase Mod Urine RBC (Auto) 5 H Urine Microscopic WBC 8 H Ur Squamous Epith Cells < 1 Urine Bacteria Rare Attending/Attestation - Attestation I have personally seen and examined this patient.: Yes I have fully participated in the care of the patient.: Yes I have reviewed all pertinent clinical information: Yes Notes (Text): 10/03/18 06:59 I saw, examined and discussed this patient with Dr Grace. I agree with the assess and plan outlined. This is a 23 years old female with one month hx of a Cesarian Delivery, comes with 3 days of epigastric and RUQ pain radiating to the back associated with nausea. The abdominal UltraSound showed early Cholecystitis with Choledocholithiasis and dilated common bile duct. Surgery and GI consulted NPO and Zosyn started with IV fluids and pain management Jarod Londono MD
[2018-10-03] MEDS: Piperacillin/Tazobact 3.375 GM in Sodium Chloride 0.9% 100 ML IVPB SCH ×3 (09:39→21:37)
[2018-10-03 12:48] LABS: BASO % 0.5 % (0.0-2.0); EOS # 0.1 K/uL (0.0-0.7); EOS % 2.4 % (0.0-4.0); HEMOGLOBIN 11.2 g/dL (12.0-16.0); LYMPH # 1.6 K/uL (1.0-4.3); LYMPH % 34.9 % (20.0-40.0); MEAN CORPUSCULAR HGB CONC 33.3 g/dL (33.0-37.0); MEAN PLATELET VOLUME 8.7 fl (7.2-11.7); MONO # 0.3 K/uL (0.0-0.8); MONO % 7.3 % (0.0-10.0); NEUT # 2.6 K/uL (1.8-7.0); NEUT % 54.9 % (50.0-75.0); NRBC % 0.1 % (0.0-0.0); RBC 3.86 Mil/uL (3.80-5.20); WHITE BLOOD COUNT 4.7 K/uL (4.8-10.8)
[2018-10-03 12:54] LABS: INR 1.1
[2018-10-03 12:56] LABS: PARTIAL THROMBOPLASTIN TIME 40.2 Seconds (25.6-37.1)
[2018-10-03 13:45] LABS: ALB/GLOB RATIO 1.2 (1.0-2.1); ALBUMIN 3.7 g/dL (3.5-5.0); ALT/SGPT 151 U/L (9-52); AMYLASE 279 U/L (30-110); AST/SGOT 92 U/L (14-36); BLOOD UREA NITROGEN 12 mg/dl (7-17); CALCIUM 8.9 mg/dL (8.4-10.2); GFR NON-AFRICAN AMERICAN > 60; LIPASE 701 U/L (23-300)
--- NOTE | 2018-10-03 18:10 | US ---
Date of service: 10/03/2018 HISTORY: Abdominal pain COMPARISON: None. TECHNIQUE: Sonographic evaluation of the right upper quadrant of the abdomen. FINDINGS: LIVER: Measures 17.2 cm in length. Normal echogenicity of the liver parenchyma. No mass. No intrahepatic bile duct dilatation.. Portal vein exhibits hepatopetal wall GALLBLADDER: Cholelithiasis technologist notation indicates positive sonographic Scales sign COMMON BILE DUCT: CBD is dilated measuring approximately 1.1 cm which appears to contain echogenic debris (possible choledocholithiasis) PANCREAS: Unremarkable as visualized. No mass. No ductal dilatation. RIGHT KIDNEY: Measures 11.8 x 3.4 x 3.1 cm in length. Normal echogenicity. No calculus, mass, or hydronephrosis. AORTA: No aneurysmal dilatation. IVC: Unremarkable. OTHER FINDINGS: None . IMPRESSION: Cholelithiasis with positive sonographic Scales sign reported. Dilated common bile duct which appears to contain echogenic debris of (possible choledocholithiasis)
[2018-10-03 20:05] LABS: GAMMA GLUTAMYL TRANSPEPTIDASE 297 U/L (8-78)
[2018-10-04] MEDS: Lactated Ringer's 1,000 ML IV SCH ×5 (03:01→21:08)
[2018-10-04] MEDS: Piperacillin/Tazobact 3.375 GM in Sodium Chloride 0.9% 100 ML IVPB SCH ×4 (03:04→21:05)
[2018-10-04 07:05] LABS: BASO % 0.4 % (0.0-2.0); EOS # 0.1 K/uL (0.0-0.7); EOS % 2.3 % (0.0-4.0); HEMOGLOBIN 12.8 g/dL (12.0-16.0); LYMPH # 2.2 K/uL (1.0-4.3); LYMPH % 41.3 % (20.0-40.0); MEAN CELL VOLUME 87.2 fl (81.0-99.0); MEAN CORPUSCULAR HEMOGLOBIN 29.1 pg (27.0-31.0); MEAN CORPUSCULAR HGB CONC 33.3 g/dL (33.0-37.0); MEAN PLATELET VOLUME 8.9 fl (7.2-11.7); MONO # 0.3 K/uL (0.0-0.8); MONO % 5.8 % (0.0-10.0); NEUT # 2.7 K/uL (1.8-7.0); NEUT % 50.2 % (50.0-75.0); NRBC % 0.1 % (0.0-0.0); RBC 4.4 Mil/uL (3.80-5.20); RED CELL DISTRIBUTION WIDTH 13.8 % (11.5-14.5); WHITE BLOOD COUNT 5.4 K/uL (4.8-10.8)
[2018-10-04 07:34] LABS: ALB/GLOB RATIO 1.4 (1.0-2.1); ALT/SGPT 122 U/L (9-52); AST/SGOT 46 U/L (14-36); BLOOD UREA NITROGEN 8 mg/dl (7-17); CALCIUM 9.6 mg/dL (8.4-10.2); GFR NON-AFRICAN AMERICAN > 60
--- NOTE | 2018-10-04 07:51 | CP.PCM.PN ---
Subjective - Date & Time of Evaluation Date of Evaluation: 10/04/18 Time of Evaluation: 07:50 - Subjective Subjective: General surgery progress note for Dr. Shanice Geiger, PGY-2 Pt seen/examined Pt reports abdominal pain much improved today. Denies N & V, F & C, SOB, CP. No other complaints at this time. Objective - Vital Signs/Intake and Output Vital Signs (last 24 hours): Temp Pulse Resp BP Pulse Ox 97.8 F 68 18 121/77 100 10/04/18 00:01 10/04/18 00:01 10/04/18 00:01 10/04/18 00:01 10/04/18 01:04 - Medications Medications: Current Medications Lactated Ringer's (Lactated Ringer's) 1,000 mls @ 200 mls/hr IV .Q5H MANFRED Last Admin: 10/04/18 03:01 Dose: 200 mls/hr Piperacillin Sod/Tazobactam (Sod 3.375 gm/ Sodium Chloride) 100 mls @ 100 mls/hr IVPB Q6H MANFRED; Protocol Last Admin: 10/04/18 03:04 Dose: 100 mls/hr Morphine Sulfate (Morphine) 2 mg IVP Q4 PRN PRN Reason: Pain, moderate (4-7) Last Admin: 10/04/18 03:00 Dose: 2 mg Ondansetron HCl (Zofran Inj) 4 mg IVP Q6 PRN PRN Reason: Nausea/Vomiting - Labs Labs: 10/04/18 06:05 10/04/18 06:05 PT 12.0 Seconds (9.8-13.1) 10/03/18 12:35 INR 1.1 10/03/18 12:35 APTT 40.2 Seconds (25.6-37.1) H 10/03/18 12:35 - Constitutional Appears: Non-toxic, No Acute Distress - Head Exam Head Exam: ATRAUMATIC, NORMAL INSPECTION, NORMOCEPHALIC - Eye Exam Eye Exam: EOMI, Normal appearance - ENT Exam ENT Exam: Mucous Membranes Moist, Normal Exam - Neck Exam Neck Exam: Full ROM - Respiratory Exam Respiratory Exam: Clear to Ausculation Bilateral, NORMAL BREATHING PATTERN - Cardiovascular Exam Cardiovascular Exam: REGULAR RHYTHM, +S1, +S2 - GI/Abdominal Exam GI & Abdominal Exam: Soft, Tenderness (epigastric, mild). absent: Distended, Firm, Guarding, Rigid - Extremities Exam Extremities Exam: Normal Inspection - Neurological Exam Neurological Exam: Alert, Awake, CN II-XII Intact, Oriented x3 - Psychiatric Exam Psychiatric exam: Normal Affect, Normal Mood - Skin Skin Exam: Dry, Intact, Normal Color, Warm Assessment and Plan - Assessment and Plan (Free Text) Assessment: 23F w/cholelithiasis, probable choledocholithiasis, gallstone pancreatitis - improving Plan: IVF Pain control NPO Anti-emetics PRN Monitor LFTs GGT Repeat lipase Likely will need OR prior to d/c after pancreatitis resolves Recommend GI consult Further recommendations as per attending Will HARPER Geiger, PGY-2
--- NOTE | 2018-10-04 12:10 | CP.PCM.PN ---
Subjective - Date & Time of Evaluation Date of Evaluation: 10/04/18 Time of Evaluation: 11:55 - Subjective Subjective: Patient seen and examined this AM at bedside. Patient c/o epigastric pain and RUQ and mild nausea, patient states that feels mild improvement compared to yesterday. Patient denies [place], CP, SOB, fever, chills or other acute complaint at this time. Objective - Vital Signs/Intake and Output Vital Signs (last 24 hours): Temp Pulse Resp BP Pulse Ox 97.7 F 92 H 20 122/70 95 10/04/18 08:30 10/04/18 08:30 10/04/18 08:30 10/04/18 08:30 10/04/18 08:30 - Medications Medications: Current Medications Ferrous Sulfate (Feosol) 325 mg PO DAILY MANFRED Last Admin: 10/04/18 10:03 Dose: 325 mg Lactated Ringer's (Lactated Ringer's) 1,000 mls @ 200 mls/hr IV .Q5H MANFRED Last Admin: 10/04/18 10:03 Dose: 200 mls/hr Piperacillin Sod/Tazobactam (Sod 3.375 gm/ Sodium Chloride) 100 mls @ 100 mls/hr IVPB Q6H MANFRED; Protocol Last Admin: 10/04/18 09:58 Dose: 100 mls/hr Morphine Sulfate (Morphine) 2 mg IVP Q4 PRN PRN Reason: Pain, moderate (4-7) Last Admin: 10/04/18 03:00 Dose: 2 mg Ondansetron HCl (Zofran Inj) 4 mg IVP Q6 PRN PRN Reason: Nausea/Vomiting - Labs Labs: 10/04/18 06:05 10/04/18 06:05 PT 12.0 Seconds (9.8-13.1) 10/03/18 12:35 INR 1.1 10/03/18 12:35 APTT 40.2 Seconds (25.6-37.1) H 10/03/18 12:35 - Additional Findings Additional findings: - Constitutional Appears: No Acute Distress - Head Exam Head Exam: NORMAL INSPECTION - Eye Exam Eye Exam: Normal appearance. absent: Scleral icterus - ENT Exam ENT Exam: Mucous Membranes Moist - Respiratory Exam Respiratory Exam: Clear to Auscultation Bilateral. absent: Rales, Wheezes - Cardiovascular Exam Cardiovascular Exam: REGULAR RHYTHM, +S1, +S2. absent: Systolic Murmur - GI/Abdominal Exam GI & Abdominal Exam: Normal Bowel Sounds, Soft, Tenderness (Epigastric, RUQ, (+) [place]). absent: Distended, Guarding - Extremities Exam Extremities exam: Negative for: pedal edema - Neurological Exam Neurological exam: Alert, Oriented x3 - Psychiatric Exam Psychiatric exam: Normal Affect Assessment and Plan - Assessment and Plan (Free Text) Assessment: Pt is a 23 y/o female s/p repeat C section on 09/08/18, presents to ED with complaints of Epigastric and RUQ abdominal pain x3 days associated with nausea and chills admitted for Acute Cholecystitis. #Abdominal Pain 2/2 Acute Cholecystitis and Choledocolithiasis - Gall bladder US: Distended gallbladder, dilated CBD 11mm w/ suspected stone in distal CBD, pancreas unremarkable - No systemic signs of infection - AST 46, ALT 122, ALP 186, Lipase 548<701, T.Bili 0.7 - Surgery Consulted - GI Consulted -MRCP done, pending final result - Zosyn - NS at 100 ml/hr - Pain management - Zofran prn - NPO for now # S/P C section - Breast feeding, pt advised to pump and dump for now while on Zosyn - Manual Breast Pump ordered
--- NOTE | 2018-10-04 14:58 | MRI ---
Date of service: 10/04/2018 PROCEDURE: Magnetic Resonance Cholangiopancreatography HISTORY: Suspected choledocholithiasis COMPARISON: None available. TECHNIQUE: Multiplanar, multisequence MR images of the abdomen were obtained, including heavily T2 weighted MRCP images of the biliary system. Rotating maximum intensity projection images of the biliary system were generated. FINDINGS: MRCP: The common bile duct is of a normal caliber. No evidence of choledocholithiasis. No intrahepatic biliary ductal dilatation. LIVER: Unremarkable. GALLBLADDER: Small gallstones are seen. SPLEEN: Unremarkable. PANCREAS: Unremarkable. ADRENALS: Unremarkable. KIDNEYS: Unremarkable. AORTA: No aneurysm. ASCITES: None. OTHER FINDINGS: None. IMPRESSION: Small gallstones. No evidence of common duct stones or obstruction
[2018-10-05] MEDS: Lactated Ringer's 1,000 ML IV SCH ×6 (02:57→23:16)
[2018-10-05] MEDS: Piperacillin/Tazobact 3.375 GM in Sodium Chloride 0.9% 100 ML IVPB SCH ×4 (03:00→22:00)
[2018-10-05 06:59] LABS: HEMOGLOBIN 11.2 g/dL (12.0-16.0); MEAN CELL VOLUME 87.8 fl (81.0-99.0); MEAN CORPUSCULAR HEMOGLOBIN 29.3 pg (27.0-31.0); MEAN CORPUSCULAR HGB CONC 33.3 g/dL (33.0-37.0); RBC 3.81 Mil/uL (3.80-5.20); RED CELL DISTRIBUTION WIDTH 13.8 % (11.5-14.5); WHITE BLOOD COUNT 5.1 K/uL (4.8-10.8)
[2018-10-05 07:00] LABS: INR 1.1; PROTHROMBIN TIME 12.7 Seconds (9.8-13.1)
[2018-10-05 07:03] LABS: PARTIAL THROMBOPLASTIN TIME 40.3 Seconds (25.6-37.1)
[2018-10-05 07:28] LABS: ALB/GLOB RATIO 1.3 (1.0-2.1); ALBUMIN 3.6 g/dL (3.5-5.0); ALT/SGPT 89 U/L (9-52); AST/SGOT 38 U/L (14-36); BLOOD UREA NITROGEN 8 mg/dl (7-17); CALCIUM 9.1 mg/dL (8.4-10.2); GFR NON-AFRICAN AMERICAN > 60
--- NOTE | 2018-10-05 10:47 | CP.PCM.PN ---
Subjective - Date & Time of Evaluation Date of Evaluation: 10/05/18 Time of Evaluation: 08:35 - Subjective Subjective: Patient seen and examined this AM, NAD. Patient still c/o epigastric and RUQ mild to moderate with sltly btter than prior day. Denies [place], N/V, chills or fever at present. Afebrile. Patient continues NPO pending possible lap cholecystectomy by surgical team today. Objective - Vital Signs/Intake and Output Vital Signs (last 24 hours): Temp Pulse Resp BP Pulse Ox 97.8 F 45 L 20 130/72 99 10/05/18 08:06 10/05/18 08:06 10/05/18 08:06 10/05/18 08:06 10/05/18 08:06 - Medications Medications: Current Medications Ferrous Sulfate (Feosol) 325 mg PO DAILY [facility] Last Admin: 10/05/18 08:25 Dose: Not Given Lactated Ringer's (Lactated Ringer's) 1,000 mls @ 200 mls/hr IV .Q5H [facility] Last Admin: 10/05/18 09:26 Dose: 200 mls/hr Piperacillin Sod/Tazobactam (Sod 3.375 gm/ Sodium Chloride) 100 mls @ 100 mls/hr IVPB Q6H [facility]; Protocol Last Admin: 10/05/18 09:24 Dose: 100 mls/hr Morphine Sulfate (Morphine) 2 mg IVP Q4 PRN PRN Reason: Pain, moderate (4-7) Last Admin: 10/05/18 02:55 Dose: 2 mg Ondansetron HCl (Zofran Inj) 4 mg IVP Q6 PRN PRN Reason: Nausea/Vomiting - Labs Labs: 10/05/18 05:20 10/05/18 05:20 PT 12.7 Seconds (9.8-13.1) 10/05/18 05:20 INR 1.1 10/05/18 05:20 APTT 40.3 Seconds (25.6-37.1) H 10/05/18 05:20 - Additional Findings Additional findings: - Additional Findings Additional findings: - Constitutional Appears: No Acute Distress - Head Exam Head Exam: NORMAL INSPECTION - Eye Exam Eye Exam: Normal appearance. absent: Scleral icterus - ENT Exam ENT Exam: Mucous Membranes Moist - Respiratory Exam Respiratory Exam: Clear to Auscultation Bilateral. absent: Rales, Wheezes - Cardiovascular Exam Cardiovascular Exam: REGULAR RHYTHM, +S1, +S2. absent: Systolic Murmur - GI/Abdominal Exam GI & Abdominal Exam: Normal Bowel Sounds, Soft, Tenderness Epigastric, RUQ, (+) [place]). absent: Distended, Guarding - Extremities Exam Extremities exam: Negative for: pedal edema - Neurological Exam Neurological exam: Alert, Oriented x3 - Psychiatric Exam Psychiatric exam: Normal Affect Assessment and Plan - Assessment and Plan (Free Text) Assessment: Pt is a 23 y/o female s/p repeat C section on 09/08/18, presents to ED with complaints of Epigastric and RUQ abdominal pain x3 days associated with nausea and chills admitted for Acute Cholecystitis. #Abdominal Pain 2/2 Acute Cholecystitis and Choledocolithiasis - Gall bladder US: Distended gallbladder, dilated CBD 11mm w/ suspected stone in distal CBD, pancreas unremarkable -Elevated Lipase unlikely Pancreatitis - No systemic signs of infection - AST 38, ALT 89 trending down slowly, ALP 181, Lipase 548<701, T.Bili 0.6 - Surgery Consulted, anticipating Lap santa today - GI Consulted -MRCP done, showed no CBD stone - Zosyn - NS at 100 ml/hr - Pain management - Zofran prn - NPO for now # S/P C section - Breast feeding, pt advised to pump and dump for now while on Zosyn - Manual Breast Pump ordered
[2018-10-05] MEDS ORDERED: Propofol 10 mg/ml Inj (20 ML) ONE (12:40)
[2018-10-05] MEDS ORDERED: Succinylcholine Chloride 20 mg/ml Syr (5 ml) IV ONE (12:40)
[2018-10-05] MEDS ORDERED: Rocuronium 10 mg/ml (5 ml) ONE (12:40)
[2018-10-05] MEDS ORDERED: Lidocaine 4% (Laryng-O-Jet) Kit MM ONE (12:52)
[2018-10-05] MEDS ORDERED: Midazolam 2 MG/2 ML VIAL ONE (12:52)
[2018-10-05] MEDS ORDERED: Lactated Ringer's 1,000 ML IV ONE (13:10)
[2018-10-05] MEDS ORDERED: Dexamethasone 4 mg/1 ml ONE (13:33)
[2018-10-05] MEDS ORDERED: Neostigmine 1:1000 (1 mg/ml) Inj ONE (14:23)
[2018-10-05] MEDS ORDERED: Bupivacaine 0.5% Inj(30mL) ONE (14:34)
[2018-10-05] MEDS ORDERED: Lactated Ringer's 500 ML IV ONE (14:37)
--- NOTE | 2018-10-05 14:48 | PCM.SURG1 ---
Surgeon's Initial Post Op Note - Surgeon's Notes Surgeon: Dr. Aleman Construction Sales Representative: Dr. Amarilis Jefferson Type of Anesthesia: General Endo Anesthesia Administered By: Dr. Avtar Morton Pre-Operative Diagnosis: gallstone pancreatitis Operative Findings: see operative dictation Post-Operative Diagnosis: same Operation Performed: laparoscopic cholecystectomy w/ gallbladder decompression Specimen/Specimens Removed: gallbladder Estimated Blood Loss: EBL {In ML}: 20 Blood Products Given: N/A Drains Used: No Drains Post-Op Condition: Good Date of Surgery/Procedure: 10/05/18 Time of Surgery/Procedure: 14:48
[2018-10-05] MEDS ORDERED: oxyCODONE 5 mg Immediate Release Tab PO PRN (14:49)
[2018-10-05] MEDS ORDERED: HYDROmorphone 0.5 mg/0.5 ml ISec IVP PRN (14:51)
--- NOTE | 2018-10-05 17:52 | CON ---
DATE: 10/04/2018 REFERRING PHYSICIAN: . REASON FOR CONSULTATION: Abdominal pain, cholecystitis. HISTORY OF PRESENT ILLNESS: This is a very pleasant 23-year-old female who just gave a few months ago. She comes in abdominal pain and discomfort radiating to the back . Currently lying in bed, comfortable, in no apparent distress. PAST MEDICAL HISTORY: As above. SURGICAL HISTORY: As above. MEDICATIONS: Reviewed. REVIEW OF SYSTEMS: All other systems have been reviewed and negative apart from the HPI. PHYSICAL EXAMINATION: VITAL SIGNS: Here in the hospital are grossly unremarkable. GENERAL: Pleasant young female, lying in bed comfortable, in no apparent distress.. HEENT: Head: Normocephalic and atraumatic. Eyes: Pupils are equal and reactive to light bilaterally. No conjunctival pallor or icterus. NECK: Supple. Normal range of motion. No lymph nodes appreciated. LUNGS: Coarse breath sounds bilaterally. HEART: S1 and S2. Regular rate and rhythm. No murmurs appreciated. ABDOMEN: Soft, nontender. Bowel sounds present. No rebound. No guarding. RECTAL: Deferred. EXTREMITIES: Pulses felt bilaterally. SKIN: Warm, dry and intact. NEUROLOGIC: Alert and oriented x3. LABORATORY DATA: Labs and radiology have been reviewed. WBC is 5.8, hemoglobin 12, hematocrit 38.3. AST and ALT is 146 and 122, alk phos 186, total bilirubin is normal. negative. Ultrasound shows gallstones and fluid. ASSESSMENT AND PLAN: This is a 23-year-old female with cholecystitis. Surgical consult appreciated. From gastrointestinal standpoint, no need for any endoscopic retrograde cholangiopancreatography at this point.. Thank you for this consult. Bertram Aguero MD/ PhD cc: MD
[2018-10-05] MEDS: Potassium Chloride 20 mEq 100 ML IVPB SCH ×2 (19:43→23:12)
--- NOTE | 2018-10-05 22:59 | CARD ---
APPROVED REPORT Date of service: 10/05/2018 EKG Measurement Heart [id number] GA 100P5 [id number] <Conclusion> Sinus bradycardia with short GA Otherwise normal ECG
[2018-10-06] MEDS: Lactated Ringer's 1,000 ML IV SCH (01:50)
--- NOTE | 2018-10-06 03:19 | OP ---
PROCEDURE DATE: 10/05/2018 PREOPERATIVE DIAGNOSIS: Gallstone pancreatitis. POSTOPERATIVE DIAGNOSIS: Cholelithiasis. PROCEDURE: Laparoscopic cholecystectomy. SURGEON: Dc Aleman MD SITE DIRECTOR: Jennifer Geiger DO ANESTHESIOLOGIST: Sophie Nova MD ANESTHESIA: General endotracheal. FINDINGS: Acutely inflamed gallbladder with gallstones. SPECIMENS: Gallbladder. BLOOD LOSS: 20 mL. DRAINS: None. COMPLICATIONS: None. INDICATIONS FOR PROCEDURE: Gaby Singh is a 23-year-old female who came in with epigastric abdominal pain due to gallstone pancreatitis. After resolution of pancreatitis episode, the patient was deemed to benefit from laparoscopic cholecystectomy. The patient was consented for the same. All risks and benefits were discussed with the patient prior to the procedure and all questions were answered. DESCRIPTION OF PROCEDURE: The patient was taken into the operating room and laid supine upon the operating table. General endotracheal anesthesia was applied. The patient was intubated. The patient was prepped and draped in the usual sterile fashion. A time-out was performed identifying the patient and procedure. A supraumbilical incision was made and a Veress needle was used to introduce pneumoperitoneum to 15 mmHg. An 11 mm trocar was introduced without incident. The laparoscope was introduced and the intraabdominal cavity was inspected. No abnormalities were noted except for a small adhesion in the lower pelvis. The remaining ports were introduced. An 11 mm trocar was placed in the epigastrium and two 5 mm trocars were placed in the right costal margin. The fundus of the gallbladder was grasped and retracted over the liver bed cephalad. The infundibulum of the gallbladder was grasped after sharp dissection was performed to remove filmy peritoneal attachments. The cystic duct and cystic artery were circumferentially dissected. The cystic duct was triply clipped and divided. The cyst artery was triply clipped and divided. The gallbladder was dissected off the liver bed using electrocautery, approximately midway through the dissection and it was noted that there was a large blood vessel at the posterior aspect of the gallbladder. This was triply clipped and divided. The remaining gallbladder was removed using electrocautery with good hemostasis. The gallbladder was placed into an EndoCatch bag and removed from the intraabdominal cavity. The intraabdominal cavity was inspected for hemostasis and irrigation was used. All irrigant was removed via suctioning. The intraabdominal cavity was reinspected for any abnormalities, none were noted. All trocars and pneumoperitoneum was removed. The abdomen was allowed to collapse. The supraumbilical fascia was closed with an 0 Vicryl on a UR-5 needle in a [id number] configuration with good approximation. All skin incisions were closed using 4-0 Monocryl in either an interrupted or running subcuticular fashion. Local anesthesia was infiltrated. Then, surgical glue was applied. All sponges, sutures, and instrument counts were declared to be correct at the end of the procedure. The patient was extubated and taken to the postoperative anesthesia care unit in stable condition. Jennifer Geiger DO Dc Aleman MD AMANDA
[2018-10-06] MEDS: Piperacillin/Tazobact 3.375 GM in Sodium Chloride 0.9% 100 ML IVPB SCH ×2 (03:51→09:26)
[2018-10-06 03:58] VITALS: RESP 18; O2SAT 96
[2018-10-06 06:50] LABS: MEAN CELL VOLUME 87.8 fl (81.0-99.0); MEAN CORPUSCULAR HEMOGLOBIN 29.6 pg (27.0-31.0); MEAN CORPUSCULAR HGB CONC 33.7 g/dL (33.0-37.0); RBC 3.72 Mil/uL (3.80-5.20); RED CELL DISTRIBUTION WIDTH 13.8 % (11.5-14.5); WHITE BLOOD COUNT 7.1 K/uL (4.8-10.8)
[2018-10-06 07:08] LABS: ALB/GLOB RATIO 1.3 (1.0-2.1); ALBUMIN 3.5 g/dL (3.5-5.0); ALT/SGPT 113 U/L (9-52); AST/SGOT 69 U/L (14-36); BLOOD UREA NITROGEN 6 mg/dl (7-17); CALCIUM 8.6 mg/dL (8.4-10.2); GFR NON-AFRICAN AMERICAN > 60
--- NOTE | 2018-10-06 11:38 | CP.PCM.PN ---
Subjective - Date & Time of Evaluation Date of Evaluation: 10/06/18 Time of Evaluation: 10:20 - Subjective Subjective: General surgery progress note for Dr. Shanice Geiger, PGY-2 Pt seen/examined at bedside Pt reports abdominal pain well controlled. Ambulating. Voiding. Having bowel function. Denies N & V, ,F & C. Asking to go home. Objective - Vital Signs/Intake and Output Vital Signs (last 24 hours): Temp Pulse Resp BP Pulse Ox 98 F 71 18 134/86 96 10/06/18 08:33 10/06/18 08:33 10/06/18 08:33 10/06/18 08:33 10/06/18 08:33 - Medications Medications: Current Medications Acetaminophen (Tylenol 325mg Tab) 650 mg PO Q4 PRN PRN Reason: Pain, Mild (1-3) Ferrous Sulfate (Feosol) 325 mg PO DAILY [facility] Last Admin: 10/06/18 09:26 Dose: 325 mg Piperacillin Sod/Tazobactam (Sod 3.375 gm/ Sodium Chloride) 100 mls @ 100 mls/hr IVPB Q6H [facility]; Protocol Last Admin: 10/06/18 09:26 Dose: 100 mls/hr Lactated Ringer's (Lactated Ringer's) 1,000 mls @ 100 mls/hr IV .Q10H [facility] Last Admin: 10/06/18 01:50 Dose: Not Given Ondansetron HCl (Zofran Inj) 4 mg IVP Q6 PRN PRN Reason: Nausea/Vomiting Oxycodone HCl (Oxycodone Immediate Release Tab) 5 mg PO Q6 PRN PRN Reason: Pain, severe (8-10) Last Admin: 10/05/18 18:20 Dose: 5 mg Tramadol HCl (Ultram) 50 mg PO Q4 PRN PRN Reason: Pain, moderate (4-7) Last Admin: 10/06/18 03:52 Dose: 50 mg - Labs Labs: 10/06/18 05:55 10/06/18 05:55 PT 12.7 Seconds (9.8-13.1) 10/05/18 05:20 INR 1.1 10/05/18 05:20 APTT 40.3 Seconds (25.6-37.1) H 05/07/19 05:20 - Constitutional Appears: Non-toxic, No Acute Distress - Head Exam Head Exam: ATRAUMATIC, NORMAL INSPECTION, NORMOCEPHALIC - Eye Exam Eye Exam: EOMI, Normal appearance - ENT Exam ENT Exam: Mucous Membranes Moist, Normal Exam - Respiratory Exam Respiratory Exam: NORMAL BREATHING PATTERN - Cardiovascular Exam Cardiovascular Exam: REGULAR RHYTHM - GI/Abdominal Exam GI & Abdominal Exam: Soft. absent: Distended, Tenderness - Neurological Exam Neurological Exam: Alert, Awake, Oriented x3 - Psychiatric Exam Psychiatric exam: Normal Affect, Normal Mood - Skin Skin Exam: Dry, Intact, Normal Color, Warm Assessment and Plan - Assessment and Plan (Free Text) Assessment: 23F w/gallstone pancreatitis POD#1 s/p Lap santa Plan: Patient doing very well Cleared for d/c home from surgical standpoint DW Dr. Ash Geiger, PGY-2
--- NOTE | 2018-10-06 12:46 | CP.PCM.DIS ---
Provider - Provider Date of Admission: 10/03/18 03:20 Attending physician: Jarod Londono Consults: 10/03/18 02:46 Surgical [General Surgery Consult] Stat Comment: Consulting Provider: Dc Aleman Consulting Physician: Dc Aleman Reason for Consult: choledocholithiasis 10/03/18 04:02 Gastroenterology Consult Routine Comment: Consulting Provider: Bertram Aguero Consulting Physician: Bertram Aguero Reason for Consult: acute cholecystitis w/ suspected choledocolithiasis 10/03/18 06:40 Consult Routine Comment: Physician Instructions: Reason For Exam: LACTATING Time Spent in preparation of Discharge (in minutes): 33 Diagnosis - Discharge Diagnosis (1) Abdominal pain Status: Acute (2) Pancreatitis Status: Acute Comment: gall stone pancreatitis (3) Cholecystitis Status: Acute Hospital Course - Lab Results Lab Results: Micro Results 10/03/18 04:25 Blood Blood Culture - Preliminary NO GROWTH AFTER 48 HOURS 10/03/18 04:00 Blood Blood Culture - Preliminary NO GROWTH AFTER 48 HOURS Most Recent Lab Values WBC 7.1 K/uL (4.8-10.8) 10/06/18 05:55 RBC 3.72 Mil/uL (3.80-5.20) L 10/06/18 05:55 Hgb 11.0 g/dL (12.0-16.0) L 10/06/18 05:55 Hct 32.6 % (34.0-47.0) L 10/06/18 05:55 MCV 87.8 fl (81.0-99.0) 10/06/18 05:55 MCH 29.6 pg (27.0-31.0) 10/06/18 05:55 MCHC 33.7 g/dL (33.0-37.0) 10/06/18 05:55 RDW 13.8 % (11.5-14.5) 10/06/18 05:55 Plt Count 188 K/uL (130-400) 10/06/18 05:55 MPV 8.9 fl (7.2-11.7) 10/04/18 06:05 Neut % (Auto) 50.2 % (50.0-75.0) 10/04/18 06:05 Lymph % (Auto) 41.3 % (20.0-40.0) H 10/04/18 06:05 Wise % (Auto) 5.8 % (0.0-10.0) 10/04/18 06:05 Eos % (Auto) 2.3 % (0.0-4.0) 10/04/18 06:05 Baso % (Auto) 0.4 % (0.0-2.0) 10/04/18 06:05 Neut # (Auto) 2.7 K/uL (1.8-7.0) 10/04/18 06:05 Lymph # (Auto) 2.2 K/uL (1.0-4.3) 10/04/18 06:05 Wise # (Auto) 0.3 K/uL (0.0-0.8) 10/04/18 06:05 Eos # (Auto) 0.1 K/uL (0.0-0.7) 10/04/18 06:05 Baso # (Auto) 0.0 K/uL (0.0-0.2) 10/04/18 06:05 PT 12.7 Seconds (9.8-13.1) 10/05/18 05:20 INR 1.1 10/05/18 05:20 APTT 40.3 Seconds (25.6-37.1) H 10/05/18 05:20 Sodium 136 mmol/l (132-148) 10/06/18 05:55 Potassium 3.7 MMOL/L (3.6-5.0) 10/06/18 05:55 Chloride 101 mmol/L (98-107) 10/06/18 05:55 Carbon Dioxide 24 mmol/L (22-30) 10/06/18 05:55 Anion Gap 15 (10-20) 10/06/18 05:55 BUN 6 mg/dl (7-17) L 10/06/18 05:55 Creatinine 0.9 mg/dl (0.7-1.2) 10/06/18 05:55 Est GFR ( Amer) > 60 10/06/18 05:55 Est GFR (Non-Af Amer) > 60 10/06/18 05:55 Random Glucose 82 mg/dL (65-105) 10/06/18 05:55 Calcium 8.6 mg/dL (8.4-10.2) 10/06/18 05:55 Phosphorus 4.5 mg/dl (2.5-4.5) 10/04/18 06:05 Magnesium 1.8 MG/DL (1.6-2.3) 10/04/18 06:05 Total Bilirubin 0.7 mg/dl (0.2-1.3) 10/06/18 05:55 GGT 297 U/L (8-78) H 10/03/18 12:35 AST 69 U/L (14-36) H D 10/06/18 05:55 ALT 113 U/L (9-52) H D 10/06/18 05:55 Alkaline Phosphatase 237 U/L (38-126) H D 10/06/18 05:55 Total Protein 6.2 G/DL (6.3-8.2) L 10/06/18 05:55 Albumin 3.5 g/dL (3.5-5.0) 10/06/18 05:55 Globulin 2.7 gm/dL (2.2-3.9) 10/06/18 05:55 Albumin/Globulin Ratio 1.3 (1.0-2.1) 10/06/18 05:55 Amylase 279 U/L (30-110) H 10/03/18 12:35 Lipase 55 U/L (23-300) 10/06/18 09:00 Urine Color Yellow (YELLOW) 10/03/18 00:55 Urine Clarity Slighty-cloudy (Clear) 10/03/18 00:55 Urine pH 5.0 (5.0-8.0) 10/03/18 00:55 Ur Specific [place] 1.019 (1.003-1.030) 10/03/18 00:55 Urine Protein Negative mg/dL (NEGATIVE) 10/03/18 00:55 Urine Glucose (UA) Neg mg/dL (NEGATIVE) 10/03/18 00:55 Urine Ketones Negative mg/dL (NEGATIVE) 10/03/18 00:55 Urine Blood Small (NEGATIVE) 10/03/18 00:55 Urine Nitrate Negative (NEGATIVE) 10/03/18 00:55 Urine Bilirubin Negative (NEGATIVE) 10/03/18 00:55 Urine Urobilinogen 0.2-1.0 mg/dL (0.2-1.0) 10/03/18 00:55 Ur Leukocyte Esterase Mod Narcisa/uL (Negative) 10/03/18 00:55 Urine RBC (Auto) 5 /hpf (0-3) H 10/03/18 00:55 Urine Microscopic WBC 8 /hpf (0-5) H 10/03/18 00:55 Ur Squamous Epith Cells < 1 /hpf (0-5) 10/03/18 00:55 Urine Bacteria Rare (<OCC) 10/03/18 00:55 Blood Type O POSITIVE 10/03/18 12:35 Antibody Screen Negative 10/03/18 12:35 BBK History Checked Patient has bt 10/03/18 12:35 - Hospital Course Hospital Course: 23 Y/O female with no PMH, s/p recent 1 month ago presented with abdominal pain. Patient diagnosed with cholelithiasis, possible cholecystitis and gallstone pancreatitis. US showed possible filling defect in CBD. Surgery and ID was consulted and started on Zosyn IV. MRCP showed no CBD stone . Patient is s/p lap cholecystectomy done 10/05/18 for gallstone pancreatitis. LFT-s trended down. Lipase 55 normal today. Pain under controlled and patient tolerated well regular diet without nausea or vomiting. Hemodinamically stable and clinically stable to be dc home. All cart and clinical data reviewed. Patient will have f/u at [facility] in 1 week. Discharge Exam - Head Exam Head Exam: ATRAUMATIC, NORMAL INSPECTION, NORMOCEPHALIC - Eye Exam Eye Exam: EOMI - ENT Exam ENT Exam: Mucous Membranes Moist - Respiratory Exam Respiratory Exam: Clear to PA & Lateral, NORMAL BREATHING PATTERN - Cardiovascular Exam Cardiovascular Exam: REGULAR RHYTHM, +S1, +S2 - GI/Abdominal Exam GI & Abdominal Exam: Normal Bowel Sounds, Soft. absent: Tenderness - Extremities Exam Extremities exam: full ROM - Neurological Exam Neurological exam: Alert, Oriented x3 - Psychiatric Exam Psychiatric exam: Normal Affect - Skin Skin Exam: Normal Color, Warm Discharge Plan - Follow Up Plan Condition: FAIR Disposition: HOME/ ROUTINE Instructions: Cholecystectomy, Laparoscopic Surgery, Laceration Repair With Glue (DC), Cholecystitis (DC) Additional Instructions: follow up with primary MD 1 week. Follow up at [facility] on 10/14 at 9:[address] Stout Ok to shower- do not sit in water You have surgical glue in place that will fall off on it's own, do not pick at it Ok to resume normal diet No heavy lifting for 4- 6 weeks Please follow up with Dr. Aleman in 1-2 weeks hacer megan con cirujano dentro de 1-2 semanas esta cyndi duchar reynaldo no submeter en agua resuma dieta regular no levantar nada pesado por 4-6 semanas ED precautions given: Go to the ED if you have persistent abdominal pain, fever, vomiting, or any other new symptom of concern presents. Referrals: [facility] [Outside] Dc Aleman MD [Staff Provider] - Felicity Barton MD [Family Provider] - Bertram Aguero MD, PhD [Staff Provider] -
[2018-10-06 14:03] VITALS: BP 126/72; PULSE 66; TEMP 98.1
== END 2018-10-06 15:07 | disposition home or self-care (01) | DRG 263 ==
LOC: H.ER 23:59 → H.ERHOLD 10-03 03:20 → H.MEDSURG1 10-03 05:39
PROVIDERS: ADMIT Internal Medicine; ATTEND Internal Medicine
PROC: 0FT44ZZ Resection of Gallbladder, Percutaneous Endoscopic Approach (ICD-10-PCS; principal; 2018-10-05 12:30)
DX: K80.10 Calculus of gallbladder with chronic cholecystitis without obstruction (principal); K85.10 Biliary acute pancreatitis without necrosis or infection

== ENCOUNTER 2018-10-07 19:43 | Inpatient (IN) | payer MEDICAID, SELFPAY ==
[2018-10-07 19:44] VITALS: BMI 30.9
[2018-10-07] MEDS ORDERED: Sodium Chloride 0.9% 1,000 ML IV STA (21:19)
--- NOTE | 2018-10-07 21:30 | ED PDOC ---
HPI: Back Time Seen by Provider: 10/07/18 21:07 Chief Complaint (Nursing): Back Pain Chief Complaint (Provider): Back Pain, Nausea/Vomiting History Per: Patient History/Exam Limitations: no limitations Onset/Duration Of Symptoms: Days Current Symptoms Are (Timing): Still Present Quality Of Discomfort: Aching, Cramping Pain Scale Rating Of: 7 Previous Symptoms: Back Pain, Prior Surgery Associated Symptoms: None Exacerbating Factor(s): Turning, Movement Additional History Per: Patient Additional Complaint(s): 23 year old female with a hx of in august and cholecystectomy on 10/05/2018 presents to the ED c/o neck pain, shoulder pain and bilat mid back pain since yesterday afternoon. She states the pain is worse with movement and when taking deep breath. She has been taking Tylenol with minimal relief. The pain has also caused poor appetite, one episode of vomiting today. Patient denies fever, coughing, palpitations, shortness of breath, abdominal pain, headache, dizziness, leg pain. Additionally patient is crying in room stating that she feels useless and incompetent. Sister that is in room with patient states that she has been having episodes of crying since she gave . Patient denies suicidal or homicidal ideations. She states she wants to be home with her daughter. Past Medical History Reviewed: Historical Data, Nursing Documentation, Vital Signs Vital Signs: Last Vital Signs Temp 98.7 F 10/07/18 20:12 Pulse 70 10/07/18 20:12 Resp 16 10/07/18 20:12 BP 124/85 10/07/18 20:12 Pulse Ox 98 10/07/18 20:12 LUIS Report Viewed: No Primary Care Provider: FAMILY PROVIDER,NO - Medical History PMH: Denies: Depression, Diabetes, HIV, HTN, Chronic Kidney Disease - Surgical History Surgical History: Cholecystectomy, - Family History Family History: States: Unknown Family Hx - Living Arrangements Living Arrangements: With Family - Social History Alcohol: None Drugs: Denies - Home Medications Home Medications: Ambulatory Orders Medication Instructions Recorded Ferrous Sulfate [Feosol] 325 mg PO DAILY 10/03/18 Acetaminophen [Tylenol 325mg tab] 650 mg PO Q4 PRN tab 10/06/18 - Allergies Allergies/Adverse Reactions: Allergies Allergy/AdvReac Type Severity Reaction Status Date / Time No Known Allergies Allergy Verified 10/07/18 20:17 Review of Systems ROS Statement: Except As Marked, All Systems Reviewed And Found Negative Constitutional: Negative for: Fever, Chills, Weakness, Malaise Cardiovascular: Negative for: Chest Pain, Palpitations, Light Headedness Respiratory: Negative for: Cough, Shortness of Breath, SOB with Exertion, Wheezing Gastrointestinal: Positive for: Nausea, Vomiting. Negative for: Abdominal Pain, Diarrhea, Constipation Genitourinary Female: Negative for: Dysuria, Hematuria Musculoskeletal: Positive for: Neck Pain, Shoulder Pain, Back Pain. Negative for: Arm Pain, Hand Pain, Leg Pain, Foot Pain Psych: Positive for: Depression. Negative for: Anxiety, Psychosis, Suicidal ideation, Withdrawal Physical Exam - Reviewed Nursing Documentation Reviewed: Yes Vital Signs Reviewed: Yes - Physical Exam Appears: Positive for: Well, Non-toxic, No Acute Distress Head Exam: Positive for: ATRAUMATIC, NORMAL INSPECTION, NORMOCEPHALIC Skin: Positive for: Normal Color, Warm, DRY Eye Exam: Positive for: EOMI, Normal appearance, PERRL ENT: Positive for: Normal ENT Inspection Neck: Positive for: Normal, Supple, Trachea Midline, Pain On Movement Of Neck (pain with flexing neck backward. +full rom ). Negative for: Decreased ROM, Limited ROM Cardiovascular/Chest: Positive for: Regular Rate, Rhythm, Chest Non Tender Respiratory: Positive for: Normal Breath Sounds. Negative for: Accessory Muscle Use, Crackles, Rales, Rhonchi, Stridor, Wheezing, Respiratory Distress, Other Gastrointestinal/Abdominal: Positive for: Normal Exam (4 smal surigcal incisions, neg for redness, drainage, induration. ), Bowel Sounds (normactive ), Soft. Negative for: Tenderness Back: Positive for: Normal Inspection Extremity: Positive for: Normal ROM Neurological/Psych: Positive for: Awake, Alert, Normal Tone, Oriented - Laboratory Results Result Diagrams: 10/07/18 22:00 10/07/18 22:00 - ECG O2 Sat by Pulse Oximetry: 98 Medical Decision Making Medical Decision Making: --CBC --CMP --CPK --PT/INR --UA --0.9NS --TORADOL --ZOFRAN --Patient offered crisis intervention patient refused 23:29 Labs reviewed by me, acutely elevated LFT's, with increased in total bili. added lipase, LDH and abd US to course of treatment. Called out to surgery residents for consult. 2345 Spoke to Pa, surgical sales representative. will evaluate patient in ED. Patient re-assessed at this time, patient stated pain has improved. 00:15 Pa surgical sales representative evaluated patient. Recommend to send patient to CT abd/pelvis with IV only for r/o fluid collection. 00:45 Dr. Aleman called on consult, as Dr. aleman performed sx on [facility]. Patient to be admitted under hospitalist service. She will see patient in the morning. called for admission. Patient accepted, MD will see evaluate patient. Admission med/surg dx pancreatitis s/p cholecystectomy, 0101 Abdomen US Findings: The liver measures 17.6 cm. Normal hepatic echotexture. Cholecystectomy. Nondilated common bile duct measuring 6.5 mm. Unremarkable pancreas. Unremarkable IVC. Nonaneurysmal aorta measuring 1.6 cm. Unremarkable right kidney measuring 11.3x4.6 x 5.3 cm. Impression: Cholecystectomy. No other abnormality. 0140 CT Abdomen/Pelvis W Contrast Findings: Bilateral basilar hypoventilatory pulmonary changes. Mild cardiomegaly. Prior cholecystectomy. Mild surgical changes. Fluid-filled stomach suggestive of gastroparesis. Mild thickening and enhancement of the common bile duct. Please evaluate to exclude cholangitis. Nondilated biliary tree. No evidence of obstructing stone. No fluid collection or drainable abscess formation. Minimal amount of free pelvic fluid is noted. Changes of pelvic congestion syndrome. The liver is of uniform attenuation without mass or defect. There is no intra or extrahepatic biliary ductal dilatation. The spleen is normal. The pancreas is of normal contour and attenuation characteristics. There is no evidence of adrenal mass. Both kidneys demonstrate prompt and equal nephrograms. The kidneys are normal in size, shape and configuration. There is no evidence of renal or ureteral mass. No renal or ureteral calculi are identified. There is no hydroureter or hydronephrosis. No evidence for appendicitis. There is no bowel wall thickening. No evidence for small or large bowel obstruction. There is no evidence of abdominal ascites or lymphadenopathy. There is no evidence of intrinsic or extrinsic bladder mass. Images of the lung bases show no evidence of pleural or parenchymal mass. There are no pleural effusions. The bony structures are free of lytic or blastic lesions. IMPRESSION: Bilateral basilar hypoventilatory pulmonary changes. Mild cardiomegaly. Prior cholecystectomy. Mild surgical changes. Fluid-filled stomach suggestive of gastroparesis. Mild thickening and enhancement of the common bile duct. Please evaluate to exclude cholangitis. Nondilated biliary tree. No evidence of obstructing stone. No fluid collection or drainable abscess formation. Minimal amount of free pelvic fluid is noted. Disposition - Clinical Impression Clinical Impression: Pancreatitis - Patient ED Disposition Is Patient to be Admitted: Yes Doctor Will See Patient In The: Hospital Counseled Patient/Family Regarding: Diagnosis - Disposition Disposition Time: 02:17 Condition: STABLE - Pt Status Changed To: Hospital Disposition Of: Inpatient - Admit Certification Admit to Inpatient:: After my assessment, the patient will require hospitalization for at least two midnights. This is because of the severity of symptoms shown, intensity of services needed, and/or the medical risk in this patient being treated as an outpatient. - POA Present On Arrival: None
[2018-10-07 22:42] LABS: BASO % 0.2 % (0.0-2.0); EOS % 0.3 % (0.0-4.0); HEMOGLOBIN 12.3 g/dL (12.0-16.0); LYMPH # 1.3 K/uL (1.0-4.3); LYMPH % 16.2 % (20.0-40.0); MEAN CELL VOLUME 88.3 fl (81.0-99.0); MEAN CORPUSCULAR HEMOGLOBIN 29.2 pg (27.0-31.0); MEAN CORPUSCULAR HGB CONC 33.1 g/dL (33.0-37.0); MEAN PLATELET VOLUME 8.9 fl (7.2-11.7); MONO # 0.4 K/uL (0.0-0.8); MONO % 5.1 % (0.0-10.0); NEUT # 6.1 K/uL (1.8-7.0); NEUT % 78.2 % (50.0-75.0); NRBC % 0.1 % (0.0-0.0); RBC 4.21 Mil/uL (3.80-5.20); RED CELL DISTRIBUTION WIDTH 13.8 % (11.5-14.5); WHITE BLOOD COUNT 7.8 K/uL (4.8-10.8)
[2018-10-07 22:43] LABS: SQUAMOUS EPITHIAL 1 /hpf (0-5); URINE BACTERIA RARE (<OCC); URINE BILIRUBIN NEGATIVE (NEGATIVE); URINE BLOOD MODERATE (NEGATIVE); URINE CLARITY SLIGHTY-CLOUDY (Clear); URINE COLOR YELLOW (YELLOW); URINE GLUCOSE (UA) NEG (NEGATIVE); URINE LEUKOCYTE ESTERASE TRACE Leu/uL (Negative); URINE PROTEIN NEGATIVE (NEGATIVE)
[2018-10-07 22:53] LABS: INR 1.1; PROTHROMBIN TIME 12.2 Seconds (9.8-13.1)
[2018-10-07 22:54] LABS: ALB/GLOB RATIO 1.3 (1.0-2.1); ALBUMIN 4.4 g/dL (3.5-5.0); ALT/SGPT 341 U/L (9-52); AST/SGOT 376 U/L (14-36); BLOOD UREA NITROGEN 6 mg/dl (7-17); CALCIUM 9.7 mg/dL (8.4-10.2); GFR NON-AFRICAN AMERICAN > 60
[2018-10-07 22:56] LABS: PARTIAL THROMBOPLASTIN TIME 36.8 Seconds (25.6-37.1)
[2018-10-08 00:01] LABS: LIPASE 1157 U/L (23-300)
--- NOTE | 2018-10-08 00:24 | CP.PCM.CON ---
History of Present Illness - History of Present Illness History of Present Illness: General Surgery Consult for Dr. Aleman Reason for consult: hyperbilirubinemia, elevated LFts and lipase 23 F with PMH of s/p laparoscopic cholecystectomy POD#3 presents to [facility] with 3 day history of neck, bilateral shoulder and upper thoracic pain. Patient was seen and evaluated in the ED. She states that pain began after surgery and was present intermittently until it worsened then remained constant. She describes it as pressure and localized, exacerbated with palpation and movement. She reports associated subjective fevers and nausea/vomiting x 2 with NBNB emesis. Patient took NSAID which helped minimally. Denies chills, cp, SOB, diarrhea, constipation, urinary symptoms. PMD: ORC PMH: denies PSH: , lap cholecystectomy ALL: NKDA Review of Systems - Review of Systems All systems: reviewed and no additional remarkable complaints except (as per H PI) Past Patient History - Past Medical History & Family History Past Medical History?: No - Past Social History Alcohol: None Drugs: Denies - CARDIAC Hx Hypertension: No - PULMONARY Hx Respiratory Disorders: No - NEUROLOGICAL Hx Neurological Disorder: No - HEENT Hx HEENT Problems: No - RENAL Hx Chronic Kidney Disease: No - ENDOCRINE/METABOLIC Hx Endocrine Disorders: No - HEMATOLOGICAL/ONCOLOGICAL Hx Human Immunodeficiency Virus (HIV): No - INTEGUMENTARY Hx Dermatological Problems: No - MUSCULOSKELETAL/RHEUMATOLOGICAL Hx Musculoskeletal Disorders: No Hx Falls: No - GASTROINTESTINAL Hx Gastrointestinal Disorders: No - GENITOURINARY/GYNECOLOGICAL Hx Genitourinary Disorders: No - PSYCHIATRIC Hx Depression: No - SURGICAL HISTORY Hx Cholecystectomy: Yes - ANESTHESIA Hx Anesthesia: Yes Hx Anesthesia Reactions: No Hx Malignant Hyperthermia: No Meds Allergies/Adverse Reactions: Allergies Allergy/AdvReac Type Severity Reaction Status Date / Time No Known Allergies Allergy Verified 10/07/18 20:17 Physical Exam - Constitutional Appears: Non-toxic, No Acute Distress - Head Exam Head Exam: ATRAUMATIC, NORMOCEPHALIC - Eye Exam Eye Exam: EOMI, Normal appearance Pupil Exam: PERRL - ENT Exam ENT Exam: Mucous Membranes Moist - Neck Exam Neck exam: Positive for: Full Rom - Respiratory Exam Respiratory Exam: NORMAL BREATHING PATTERN - Cardiovascular Exam Cardiovascular Exam: REGULAR RHYTHM - GI/Abdominal Exam GI & Abdominal Exam: Normal Bowel Sounds, Soft. absent: Distended, Firm, Guarding, Hernia, Rebound, Rigid, Tenderness Additional comments: laparoscopic surgical sites clean dry and intact - Extremities Exam Extremities exam: Positive for: normal capillary refill, pedal pulses present. Negative for: calf tenderness - Back Exam Back exam: absent: CVA tenderness (L), CVA tenderness (R) - Neurological Exam Neurological exam: Alert, CN II-XII Intact, Normal Gait, Oriented x3 - Psychiatric Exam Psychiatric exam: Normal Affect, Normal Mood - Skin Skin Exam: Dry, Intact, Normal Color, Warm Results - Vital Signs Recent Vital Signs: Last Vital Signs Temp 98.7 F 10/07/18 20:12 Pulse 70 10/07/18 20:12 Resp 16 10/07/18 20:12 BP 124/85 10/07/18 20:12 Pulse Ox 98 10/07/18 23:46 - Labs Result Diagrams: 10/08/18 06:10 10/08/18 06:10 Labs: Laboratory Results - last 24 hr 10/07/18 10/07/18 10/07/18 22:00 22:00 22:00 WBC 7.8 RBC 4.21 Hgb 12.3 Hct 37.2 MCV 88.3 MCH 29.2 MCHC 33.1 RDW 13.8 Plt Count 205 MPV 8.9 Neut % (Auto) 78.2 H Lymph % (Auto) 16.2 L [place] % (Auto) 5.1 Eos % (Auto) 0.3 Baso % (Auto) 0.2 Neut # (Auto) 6.1 Lymph # (Auto) 1.3 [place] # (Auto) 0.4 Eos # (Auto) 0.0 Baso # (Auto) 0.0 PT 12.2 INR 1.1 APTT 36.8 D-Dimer, Quantitative 688 H Sodium 140 Potassium 3.8 Chloride 103 Carbon Dioxide 26 Anion Gap 15 BUN 6 L Creatinine 0.7 Est GFR ( Amer) > 60 Est GFR (Non-Af Amer) > 60 Random Glucose 114 H Calcium 9.7 Total Bilirubin 2.4 H AST 376 H D ALT 341 H D Alkaline Phosphatase 337 H D Lactate Dehydrogenase 1324 H Total Creatine Kinase 76 Total Protein 7.7 Albumin 4.4 Globulin 3.3 Albumin/Globulin Ratio 1.3 Lipase 1157 H Urine Color Urine Clarity Urine pH Ur Specific [place] Urine Protein Urine Glucose (UA) Urine Ketones Urine Blood Urine Nitrate Urine Bilirubin Urine Urobilinogen Ur Leukocyte Esterase Urine RBC (Auto) Urine Microscopic WBC Ur Squamous Epith Cells Urine Bacteria 10/07/18 22:00 WBC RBC Hgb Hct MCV MCH MCHC RDW Plt Count MPV Neut % (Auto) Lymph % (Auto) [place] % (Auto) Eos % (Auto) Baso % (Auto) Neut # (Auto) Lymph # (Auto) [place] # (Auto) Eos # (Auto) Baso # (Auto) PT INR APTT D-Dimer, Quantitative Sodium Potassium Chloride Carbon Dioxide Anion Gap BUN Creatinine Est GFR ( Amer) Est GFR (Non-Af Amer) Random Glucose Calcium Total Bilirubin AST ALT Alkaline Phosphatase Lactate Dehydrogenase Total Creatine Kinase Total Protein Albumin Globulin Albumin/Globulin Ratio Lipase Urine Color Yellow Urine Clarity Slighty-cloudy Urine pH 7.0 Ur Specific [place] 1.008 Urine Protein Negative Urine Glucose (UA) Neg Urine Ketones Negative Urine Blood Moderate Urine Nitrate Negative Urine Bilirubin Negative Urine Urobilinogen 1.0 Ur Leukocyte Esterase Trace Urine RBC (Auto) 21 H Urine Microscopic WBC 5 Ur Squamous Epith Cells 1 Urine Bacteria Rare Assessment & Plan - Assessment and Plan (Free Text) Assessment: 23F s/p laparoscopic cholecystectomy POD#3 who now presents with hyperbilirubinemia, elevated LFts and lipase Plan: -NPO -IVF -IV abx -Pain control if needed -Anti-emetics PRN -Recommend GI consult -f/u MRCP -Trend LFTs -Discussed with Dr. Ash Disla PGY2 - Date & Time Date: 10/08/18 Time: 03:00
[2018-10-08] MEDS ORDERED: Sodium Chloride 0.9% 50 ML IV ONE (00:58)
[2018-10-08] MEDS ORDERED: Iohexol 300 100 ML IJ ONE (00:58)
[2018-10-08] MEDS ORDERED: Sodium Chloride 0.9% 1,000 ML IV STA (01:09)
[2018-10-08] MEDS ORDERED: Lactated Ringer's 1,000 ML IV SCH (02:15)
[2018-10-08] MEDS: Lactated Ringer's 1,000 ML IV SCH ×8 (04:28→23:33)
--- NOTE | 2018-10-08 04:30 | CP.PCM.HP ---
<Henry Geiger - Last Filed: 10/08/18 04:31> History of Present Illness - History of Present Illness History of Present Illness: 23 yo F presents with 3 day history of neck, bilateral shoulder and upper thoracic pain, experienced while at rest. pain is pressure like, 10/10, conistent, localized, exacerbated with direct touch and upper torso movement. Mildly alleviated with tylenol. Pt reports subjective fever. Pt also experienced nausea with vomiting x 2. denies: cough, sob, abdo pain, headaches; last bowel movement yesterday. Of note: pt was recently discharged 3 days prior s/p lap santa. Also, pt had c section in 08/2018 in [place]. Since of her child, she has been feeling sad. She denies depression, SI/HI. Pt has stopped breast feeding. PMD: [facility] Surg: c/s, lap santa fam: htn Soc: denies smoking, alcohol, illicit drugs Rx: tylenol NKDA Present on Admission - Present on Admission Any Indicators Present on Admission: No History of Uncontrolled Diabetes: No Urinary Catheter: No Review of Systems - Cardiovascular Cardiovascular: absent: Chest Pain - Respiratory Respiratory: absent: Cough, Dyspnea, Hemoptysis - Gastrointestinal Gastrointestinal: Abdominal Pain (at surgical sites: lap santa and ). absent: Constipation, Diarrhea - Musculoskeletal Musculoskeletal: Back Pain, Muscle Cramps, Myalgias, Neck Pain - Neurological Neurological: absent: Abnormal Gait Past Patient History - Past Medical History & Family History Past Medical History?: No - Past Social History Smoking Status: Never Smoked Alcohol: None Drugs: Denies Home Situation {Lives}: With Family - CARDIAC Hx Hypertension: No - PULMONARY Hx Respiratory Disorders: No - NEUROLOGICAL Hx Neurological Disorder: No - HEENT Hx HEENT Problems: No - RENAL Hx Chronic Kidney Disease: No - ENDOCRINE/METABOLIC Hx Endocrine Disorders: No - HEMATOLOGICAL/ONCOLOGICAL Hx Human Immunodeficiency Virus (HIV): No - INTEGUMENTARY Hx Dermatological Problems: No - MUSCULOSKELETAL/RHEUMATOLOGICAL Hx Musculoskeletal Disorders: No Hx Falls: No - GASTROINTESTINAL Hx Gastrointestinal Disorders: Yes Hx Gall Bladder Disease: Yes - GENITOURINARY/GYNECOLOGICAL Hx Genitourinary Disorders: No - PSYCHIATRIC Hx Depression: No - SURGICAL HISTORY Hx Cholecystectomy: Yes - ANESTHESIA Hx Anesthesia: Yes Hx Anesthesia Reactions: No Hx Malignant Hyperthermia: No Meds Allergies/Adverse Reactions: Allergies Allergy/AdvReac Type Severity Reaction Status Date / Time No Known Allergies Allergy Verified 10/07/18 20:17 Physical Exam - Constitutional Appears: No Acute Distress - Eye Exam Eye Exam: EOMI - ENT Exam ENT Exam: Mucous Membranes Moist - Respiratory Exam Respiratory Exam: Clear to Auscultation Bilateral, NORMAL BREATHING PATTERN. absent: Wheezes - Cardiovascular Exam Cardiovascular Exam: REGULAR RHYTHM, +S1, +S2 - GI/Abdominal Exam GI & Abdominal Exam: Normal Bowel Sounds, Soft, Tenderness (at vertical incision from ; pt has 3 abdominal incisions from prior laparoscopic procedure) - Extremities Exam Extremities exam: Negative for: calf tenderness - Back Exam Back exam: muscle spasm, tenderness (muscular) - Neurological Exam Neurological exam: Alert, CN II-XII Intact, Oriented x3 - Psychiatric Exam Psychiatric exam: Normal Affect, Normal Mood Results - Vital Signs Recent Vital Signs: Last Vital Signs Temp 101.3 F H 10/08/18 02:40 Pulse 69 10/08/18 02:40 Resp 18 10/08/18 02:40 BP 133/78 10/08/18 02:40 Pulse Ox 98 10/08/18 03:26 - Labs Result Diagrams: 10/07/18 22:00 10/07/18 22:00 Labs: Laboratory Results - last 24 hr 10/07/18 10/07/18 10/07/18 22:00 22:00 22:00 WBC 7.8 RBC 4.21 Hgb 12.3 Hct 37.2 MCV 88.3 MCH 29.2 MCHC 33.1 RDW 13.8 Plt Count 205 MPV 8.9 Neut % (Auto) 78.2 H Lymph % (Auto) 16.2 L [place] % (Auto) 5.1 Eos % (Auto) 0.3 Baso % (Auto) 0.2 Neut # (Auto) 6.1 Lymph # (Auto) 1.3 [place] # (Auto) 0.4 Eos # (Auto) 0.0 Baso # (Auto) 0.0 PT 12.2 INR 1.1 APTT 36.8 D-Dimer, Quantitative 688 H Sodium 140 Potassium 3.8 Chloride 103 Carbon Dioxide 26 Anion Gap 15 BUN 6 L Creatinine 0.7 Est GFR ( Amer) > 60 Est GFR (Non-Af Amer) > 60 Random Glucose 114 H Calcium 9.7 Total Bilirubin 2.4 H AST 376 H D ALT 341 H D Alkaline Phosphatase 337 H D Lactate Dehydrogenase 1324 H Total Creatine Kinase 76 Total Protein 7.7 Albumin 4.4 Globulin 3.3 Albumin/Globulin Ratio 1.3 Lipase 1157 H Urine Color Urine Clarity Urine pH Ur Specific [place] Urine Protein Urine Glucose (UA) Urine Ketones Urine Blood Urine Nitrate Urine Bilirubin Urine Urobilinogen Ur Leukocyte Esterase Urine RBC (Auto) Urine Microscopic WBC Ur Squamous Epith Cells Urine Bacteria 10/07/18 22:00 WBC RBC Hgb Hct MCV MCH MCHC RDW Plt Count MPV Neut % (Auto) Lymph % (Auto) [place] % (Auto) Eos % (Auto) Baso % (Auto) Neut # (Auto) Lymph # (Auto) [place] # (Auto) Eos # (Auto) Baso # (Auto) PT INR APTT D-Dimer, Quantitative Sodium Potassium Chloride Carbon Dioxide Anion Gap BUN Creatinine Est GFR ( Amer) Est GFR (Non-Af Amer) Random Glucose Calcium Total Bilirubin AST ALT Alkaline Phosphatase Lactate Dehydrogenase Total Creatine Kinase Total Protein Albumin Globulin Albumin/Globulin Ratio Lipase Urine Color Yellow Urine Clarity Slighty-cloudy Urine pH 7.0 Ur Specific [place] 1.008 Urine Protein Negative Urine Glucose (UA) Neg Urine Ketones Negative Urine Blood Moderate Urine Nitrate Negative Urine Bilirubin Negative Urine Urobilinogen 1.0 Ur Leukocyte Esterase Trace Urine RBC (Auto) 21 H Urine Microscopic WBC 5 Ur Squamous Epith Cells 1 Urine Bacteria Rare Assessment & Plan - Assessment and Plan (Free Text) Assessment: 23 yo F presents with 3 day history of neck, bilateral shoulder and upper thoracic pain, experienced while at rest. Admitted for acute pancreatitis Plan: CT A/P: bl basilar hypoventilatory pulm changes; mild cardiomegaly, prior cholecystectomy, mild surgical changes, fluid-filled stomach suggestive of gastroparesis; mild thickening and enhancement of CBD; nondilated biliary tree; No evidence of obstructing stone; no fluid collection or drainable abcess formation. Minimal amount of free pelvic fluid noted. Abdo US: Cholecystectomy; no other abnormality noted MRCP: pending Acute pancreatitis Lipase: 1157 recent hx of gallstone pancreatitis on prior admission s/p IVF NS x [address] Aleman: NPO, LR, MRCP in AM GI: Dr. Velez: further recs appreciated Pain management: morphine f/u am labs Transaminitis AST: 376; ALT: 341; AP: 337 Pt with hx lap santa 2/2 cholelithiasis/cystitis with gallstone pancreatitis. f/u labs blues vs depression Psych: Dr. Daniels consulted: further recs appreciated denies current depression, SI/HI continue to monitor Back pain likely msk s/p cyclobenzaprine in ed c/w pain management DVT prophylaxis SCDs for now Case and plan d/w Dr. Bry Geiger MD PGY-2 <Jarod Londono - Last Filed: 10/08/18 10:22> Results - Vital Signs Recent Vital Signs: Last Vital Signs Temp 100.4 F H 10/08/18 06:00 Pulse 90 10/08/18 06:00 Resp 16 10/08/18 06:00 BP 123/72 10/08/18 06:00 Pulse Ox 98 10/08/18 06:00 - Labs Result Diagrams: 10/08/18 06:10 10/08/18 06:10 Labs: Laboratory Results - last 24 hr 10/07/18 10/07/18 10/07/18 22:00 22:00 22:00 WBC 7.8 RBC 4.21 Hgb 12.3 Hct 37.2 MCV 88.3 MCH 29.2 MCHC 33.1 RDW 13.8 Plt Count 205 MPV 8.9 Neut % (Auto) 78.2 H Lymph % (Auto) 16.2 L [place] % (Auto) 5.1 Eos % (Auto) 0.3 Baso % (Auto) 0.2 Neut # (Auto) 6.1 Lymph # (Auto) 1.3 [place] # (Auto) 0.4 Eos # (Auto) 0.0 Baso # (Auto) 0.0 PT 12.2 INR 1.1 APTT 36.8 D-Dimer, Quantitative 688 H Sodium 140 Potassium 3.8 Chloride 103 Carbon Dioxide 26 Anion Gap 15 BUN 6 L Creatinine 0.7 Est GFR ( Amer) > 60 Est GFR (Non-Af Amer) > 60 Random Glucose 114 H Calcium 9.7 Total Bilirubin 2.4 H AST 376 H D ALT 341 H D Alkaline Phosphatase 337 H D Lactate Dehydrogenase 1324 H Total Creatine Kinase 76 Total Protein 7.7 Albumin 4.4 Globulin 3.3 Albumin/Globulin Ratio 1.3 Lipase 1157 H Urine Color Urine Clarity Urine pH Ur Specific [place] Urine Protein Urine Glucose (UA) Urine Ketones Urine Blood Urine Nitrate Urine Bilirubin Urine Urobilinogen Ur Leukocyte Esterase Urine RBC (Auto) Urine Microscopic WBC Ur Squamous Epith Cells Urine Bacteria 10/07/18 10/08/18 10/08/18 22:00 06:10 06:10 WBC 8.8 RBC 3.83 Hgb 11.1 L Hct 33.6 L MCV 87.5 MCH 29.0 MCHC 33.1 RDW 13.9 Plt Count 185 MPV Neut % (Auto) Lymph % (Auto) [place] % (Auto) Eos % (Auto) Baso % (Auto) Neut # (Auto) Lymph # (Auto) [place] # (Auto) Eos # (Auto) Baso # (Auto) PT INR APTT D-Dimer, Quantitative Sodium 139 Potassium 3.6 Chloride 107 Carbon Dioxide 23 Anion Gap 13 BUN 4 L Creatinine 0.7 Est GFR ( Amer) > 60 Est GFR (Non-Af Amer) > 60 Random Glucose 110 H Calcium 8.6 Total Bilirubin 1.4 H AST 263 H D ALT 318 H Alkaline Phosphatase 327 H Lactate Dehydrogenase Total Creatine Kinase 52 Total Protein 6.7 Albumin 3.8 Globulin 3.0 Albumin/Globulin Ratio 1.3 Lipase 128 Urine Color Yellow Urine Clarity Slighty-cloudy Urine pH 7.0 Ur Specific [place] 1.008 Urine Protein Negative Urine Glucose (UA) Neg Urine Ketones Negative Urine Blood Moderate Urine Nitrate Negative Urine Bilirubin Negative Urine Urobilinogen 1.0 Ur Leukocyte Esterase Trace Urine RBC (Auto) 21 H Urine Microscopic WBC 5 Ur Squamous Epith Cells 1 Urine Bacteria Rare Attending/Attestation - Attestation I have personally seen and examined this patient.: Yes I have fully participated in the care of the patient.: Yes I have reviewed all pertinent clinical information: Yes Notes (Text): 10/08/18 10:15 I saw, examined and discussed this patient with Dr Geiger. I agree with the assess and plan outlined. This is a 23 years old female with recent Diagnosis of Chlecystitis, Choledocolithiasis and Gall Stone Pancreatitis with Cholecystectomy on 10/05/18 and D/c on 10/06/18. She comes with generalized body aches and an elevated Lipase and Liver enzymes. She is being treated for Gall stone Pancreatitis, Generalized Muscular aches and post depression. We will consult with Dr Aleman of Surgery, Dr Velez of GI and Dr Daniels of P sychiatry. Jarod Londono MD
[2018-10-08 06:46] LABS: HEMOGLOBIN 11.1 g/dL (12.0-16.0); MEAN CELL VOLUME 87.5 fl (81.0-99.0); MEAN CORPUSCULAR HGB CONC 33.1 g/dL (33.0-37.0); RBC 3.83 Mil/uL (3.80-5.20); RED CELL DISTRIBUTION WIDTH 13.9 % (11.5-14.5); WHITE BLOOD COUNT 8.8 K/uL (4.8-10.8)
[2018-10-08 07:00] LABS: ALB/GLOB RATIO 1.3 (1.0-2.1); ALBUMIN 3.8 g/dL (3.5-5.0); ALT/SGPT 318 U/L (9-52); AST/SGOT 263 U/L (14-36); BLOOD UREA NITROGEN 4 mg/dl (7-17); CALCIUM 8.6 mg/dL (8.4-10.2); GFR NON-AFRICAN AMERICAN > 60; LIPASE 128 U/L (23-300)
--- NOTE | 2018-10-08 09:02 | RAD ---
Date of service: 10/07/2018 HISTORY: back pain COMPARISON: No prior. TECHNIQUE: Chest PA and lateral views FINDINGS: LUNGS: No active pulmonary disease. PLEURA: No significant pleural effusion identified. No pneumothorax apparent. CARDIOVASCULAR: No aortic atherosclerotic calcification present. Normal cardiac size. No pulmonary vascular congestion. OSSEOUS STRUCTURES: No significant abnormalities. VISUALIZED UPPER ABDOMEN: Normal. OTHER FINDINGS: None. IMPRESSION: No acute cardiopulmonary disease appreciated.
--- NOTE | 2018-10-08 10:00 | CP.PCM.CON ---
History of Present Illness - History of Present Illness History of Present Illness: 23 yo female with lap santa 3 days ago admitted with back pain, N & V, elevated LFTs and lipase. Her gallbladder had contained multiple small gallstones. Denies currently apigastric and RUQ pain. Her second lipase considerably improved form the initial value. Review of Systems - Constitutional Constitutional: Chills - EENT Eyes: absent: Blurred Vision Ears: absent: Ear Discharge Nose/Mouth/Throat: absent: Epistaxis - Cardiovascular Cardiovascular: absent: Chest Pain - Respiratory Respiratory: absent: Cough - Gastrointestinal Gastrointestinal: As Per HPI - Genitourinary Genitourinary: absent: Change in Urinary Stream Past Patient History - Past Medical History & Family History Past Medical History?: No - Past Social History Alcohol: None Drugs: Denies - CARDIAC Hx Hypertension: No - PULMONARY Hx Respiratory Disorders: No - NEUROLOGICAL Hx Neurological Disorder: No - HEENT Hx HEENT Problems: No - RENAL Hx Chronic Kidney Disease: No - ENDOCRINE/METABOLIC Hx Endocrine Disorders: No - HEMATOLOGICAL/ONCOLOGICAL Hx Human Immunodeficiency Virus (HIV): No - INTEGUMENTARY Hx Dermatological Problems: No - MUSCULOSKELETAL/RHEUMATOLOGICAL Hx Musculoskeletal Disorders: No Hx Falls: No - GASTROINTESTINAL Hx Gastrointestinal Disorders: No - GENITOURINARY/GYNECOLOGICAL Hx Genitourinary Disorders: No - PSYCHIATRIC Hx Depression: No - SURGICAL HISTORY Hx Cholecystectomy: Yes - ANESTHESIA Hx Anesthesia: Yes Hx Anesthesia Reactions: No Hx Malignant Hyperthermia: No Meds Allergies/Adverse Reactions: Allergies Allergy/AdvReac Type Severity Reaction Status Date / Time No Known Allergies Allergy Verified 10/07/18 20:17 - Medications Medications: Current Medications Lactated Ringer's (Lactated Ringer's) 1,000 mls @ 250 mls/hr IV .Q4H MANFRED Last Admin: 10/08/18 04:28 Dose: 250 mls/hr Ibuprofen (Motrin Tab) 600 mg PO Q6 PRN PRN Reason: Fever >100.4 F Last Admin: 10/08/18 03:15 Dose: 600 mg Morphine Sulfate (Morphine) 2 mg IVP Q4 PRN PRN Reason: Pain, moderate (4-7) Ondansetron HCl (Zofran Inj) 4 mg IVP Q6 PRN PRN Reason: Nausea/Vomiting Physical Exam - Constitutional Appears: No Acute Distress - Head Exam Head Exam: ATRAUMATIC - Eye Exam Eye Exam: PERRL - ENT Exam ENT Exam: Mucous Membranes Moist - Respiratory Exam Respiratory Exam: Clear to Auscultation Bilateral - Cardiovascular Exam Cardiovascular Exam: REGULAR RHYTHM, +S1, +S2 - GI/Abdominal Exam GI & Abdominal Exam: Normal Bowel Sounds, Soft. absent: Tenderness Results - Vital Signs Recent Vital Signs: Last Vital Signs Temp 100.4 F H 10/08/18 06:00 Pulse 90 10/08/18 06:00 Resp 16 10/08/18 06:00 BP 123/72 10/08/18 06:00 Pulse Ox 98 10/08/18 06:00 - Labs Result Diagrams: 10/08/18 06:10 10/08/18 06:10 Labs: Laboratory Results - last 24 hr 10/07/18 10/07/18 10/07/18 22:00 22:00 22:00 WBC 7.8 RBC 4.21 Hgb 12.3 Hct 37.2 MCV 88.3 MCH 29.2 MCHC 33.1 RDW 13.8 Plt Count 205 MPV 8.9 Neut % (Auto) 78.2 H Lymph % (Auto) 16.2 L [place] % (Auto) 5.1 Eos % (Auto) 0.3 Baso % (Auto) 0.2 Neut # (Auto) 6.1 Lymph # (Auto) 1.3 [place] # (Auto) 0.4 Eos # (Auto) 0.0 Baso # (Auto) 0.0 PT 12.2 INR 1.1 APTT 36.8 D-Dimer, Quantitative 688 H Sodium 140 Potassium 3.8 Chloride 103 Carbon Dioxide 26 Anion Gap 15 BUN 6 L Creatinine 0.7 Est GFR ( Amer) > 60 Est GFR (Non-Af Amer) > 60 Random Glucose 114 H Calcium 9.7 Total Bilirubin 2.4 H AST 376 H D ALT 341 H D Alkaline Phosphatase 337 H D Lactate Dehydrogenase 1324 H Total Creatine Kinase 76 Total Protein 7.7 Albumin 4.4 Globulin 3.3 Albumin/Globulin Ratio 1.3 Lipase 1157 H Urine Color Urine Clarity Urine pH Ur Specific [place] Urine Protein Urine Glucose (UA) Urine Ketones Urine Blood Urine Nitrate Urine Bilirubin Urine Urobilinogen Ur Leukocyte Esterase Urine RBC (Auto) Urine Microscopic WBC Ur Squamous Epith Cells Urine Bacteria 10/07/18 10/08/18 10/08/18 22:00 06:10 06:10 WBC 8.8 RBC 3.83 Hgb 11.1 L Hct 33.6 L MCV 87.5 MCH 29.0 MCHC 33.1 RDW 13.9 Plt Count 185 MPV Neut % (Auto) Lymph % (Auto) [place] % (Auto) Eos % (Auto) Baso % (Auto) Neut # (Auto) Lymph # (Auto) [place] # (Auto) Eos # (Auto) Baso # (Auto) PT INR APTT D-Dimer, Quantitative Sodium 139 Potassium 3.6 Chloride 107 Carbon Dioxide 23 Anion Gap 13 BUN 4 L Creatinine 0.7 Est GFR ( Amer) > 60 Est GFR (Non-Af Amer) > 60 Random Glucose 110 H Calcium 8.6 Total Bilirubin 1.4 H AST 263 H D ALT 318 H Alkaline Phosphatase 327 H Lactate Dehydrogenase Total Creatine Kinase 52 Total Protein 6.7 Albumin 3.8 Globulin 3.0 Albumin/Globulin Ratio 1.3 Lipase 128 Urine Color Yellow Urine Clarity Slighty-cloudy Urine pH 7.0 Ur Specific [place] 1.008 Urine Protein Negative Urine Glucose (UA) Neg Urine Ketones Negative Urine Blood Moderate Urine Nitrate Negative Urine Bilirubin Negative Urine Urobilinogen 1.0 Ur Leukocyte Esterase Trace Urine RBC (Auto) 21 H Urine Microscopic WBC 5 Ur Squamous Epith Cells 1 Urine Bacteria Rare Assessment & Plan (1) Pancreatitis Assessment and Plan: Acute pancreatitis post GB surgery. Second lipase value much better c/w possible passed stone (or floating stone). CT showed no intraductal stone or dilation, though possible thickening of CBD. MRCP is pending. Continue IV fluids and adequate analgesia. May start ursodiol for possible small stones or sludge. Status: Acute
--- NOTE | 2018-10-08 10:05 | CP.PCM.PN ---
Objective - Vital Signs/Intake and Output Vital Signs (last 24 hours): Temp Pulse Resp BP Pulse Ox 100.4 F H 90 16 123/72 98 10/08/18 06:00 10/08/18 06:00 10/08/18 06:00 10/08/18 06:00 10/08/18 06:00 - Medications Medications: Current Medications Lactated Ringer's (Lactated Ringer's) 1,000 mls @ 250 mls/hr IV .Q4H MANFRED Last Admin: 10/08/18 04:28 Dose: 250 mls/hr Ibuprofen (Motrin Tab) 600 mg PO Q6 PRN PRN Reason: Fever >100.4 F Last Admin: 10/08/18 03:15 Dose: 600 mg Morphine Sulfate (Morphine) 2 mg IVP Q4 PRN PRN Reason: Pain, moderate (4-7) Ondansetron HCl (Zofran Inj) 4 mg IVP Q6 PRN PRN Reason: Nausea/Vomiting - Labs Labs: 10/08/18 06:10 10/08/18 06:10 PT 12.2 Seconds (9.8-13.1) 10/07/18 22:00 INR 1.1 10/07/18 22:00 APTT 36.8 Seconds (25.6-37.1) 10/07/18 22:00
--- NOTE | 2018-10-08 11:17 | CT ---
Date of service: 10/08/2018 PROCEDURE: CT Abdomen and Pelvis with contrast HISTORY: Back pain. Negative test (concurrent with this examination). Relevant surgical history: S/p cholecystomy by history approximately 4 days ago. COMPARISON: October 08, 2018. Abdominal ultrasound. TECHNIQUE: Intravenous contrast dose: 95 cc Omnipaque 300. Radiation dose: Total exam DLP = 677.30 mGy-cm. This CT exam was performed using one or more of the following dose reduction techniques: Automated exposure control, adjustment of the mA and/or kV according to patient size, and/or use of iterative reconstruction technique. FINDINGS: LOWER THORAX: Dependent atelectasis at the lung bases likely related to hypoventilation/recent surgery. LIVER: Hepatic steatosis. No focal masses. No intrahepatic bile duct dilatation or perihepatic ascites. GALLBLADDER AND BILE DUCTS: Status post cholecystectomy. No abnormality is seen in the gallbladder fossa. In the immediate postoperative period, the size of the collection in the gallbladder fossa is expected. These changes can also be seen adjacent to the right lambert colon/hepatic flexure region. PANCREAS: Unremarkable. No gross lesion or ductal dilatation. SPLEEN: Unremarkable. ADRENALS: Unremarkable. No mass. KIDNEYS AND URETERS: Unremarkable. No hydronephrosis. No solid mass. VASCULATURE: Unremarkable. No aortic aneurysm. No atherosclerotic calcification or mural plaque present. BOWEL: Constipation without fecal impaction or obstruction. Incidental finding: Either surgical clips or metallic foreign body in the cecum/ascending colon region. APPENDIX: A normal appendix is visualized in it's entirety. PERITONEUM: Fluid presumed postoperative in the pelvis. LYMPH NODES: Unremarkable. No enlarged lymph nodes. BLADDER: Unremarkable. REPRODUCTIVE: Trace fluid in the endometrial canal of uncertain etiology/significance. BONES: No acute fracture. OTHER FINDINGS: Additional postoperative changes periumbilical region. IMPRESSION: Expected postoperative changes including gallbladder fossa described above. Additional benign and/or incidental findings described above. If bile leak is suspected radionuclide scintigraphy is advised. Concordant results (preliminary interpretation) provided by [facility]. Procedure Completed: 01:10. Preliminary Report: Interpreted and electronically signed: 01:40. Final Interpretation: 11:12. October 08, 2018.
--- NOTE | 2018-10-08 12:57 | MRI ---
Date of service: 10/08/2018 PROCEDURE: Magnetic Resonance Cholangiopancreatography HISTORY: COMPARISON: None available. TECHNIQUE: Multiplanar, multisequence MR images of the abdomen were obtained, including heavily T2 weighted MRCP images of the biliary system. Rotating maximum intensity projection images of the biliary system were generated. FINDINGS: MRCP: The common bile duct is of a normal caliber with mild prominence of the common hepatic duct up to 7-8 mm. No choledocholithiasis is appreciable. Segmental and deep biliary tree branches in the liver appear normal caliber. Proximal to mid common bile duct is patent but appears poorly defined in its periphery and this is felt to be a function of the mural thickening identified in the CT from 10/08/2018 at the CBD and may reflect limited cholangitis. This may be a function of sympathetic edema postoperative otherwise and further clinical correlation is recommended. LIVER: No suspicious hepatic findings in the interval. GALLBLADDER: Cholecystectomy. SPLEEN: Unremarkable. PANCREAS: Unremarkable. ADRENALS: Unremarkable. KIDNEYS: Lower pole left renal cyst again evident. AORTA: No aneurysm. ASCITES: None. OTHER FINDINGS: None. IMPRESSION: Postcholecystectomy change are indeed are identified with mild prominence of the common hepatic duct but not the common bile duct. Instead, the peripheral margins of the proximal and mid CBD appear relatively poorly defined and with slight relative narrowing at the same level of thickening of the common bile duct on CT 10/08/2018 performed earlier. This may reflect postoperative cholangitis/sympathetic edema. Further clinical correlation is recommended. No choledocholithiasis.
--- NOTE | 2018-10-08 13:34 | CARD ---
APPROVED REPORT Date of service: 10/07/2018 EKG Measurement Heart [id number] <Conclusion> Sinus bradycardia Otherwise normal ECG
--- NOTE | 2018-10-08 13:36 | CP.PCM.CON ---
History of Present Illness - History of Present Illness History of Present Illness: consult requeted to rule out post depression pt is 23 yo F no previous history of psychiatric treatment presents to ER with 3 day history of neck, bilateral shoulder and upper thoracic pain, . Of note: pt was recently discharged 3 days prior s/p lap santa. Also, pt had c section in 08/2018 in [place]. Since of her child, she has been feeling sad. on evaluation patient reported that she has been feeling increasingly sad lately as he pain and her medical condition makes her unable to provide care for her one month old child as she would like to . [place] has two children a 9ys old and a one month old currently her sister resides with her to help with her children, reported her is supportive but he has to work at night and she some times afte the surgery feels like she is unable to care enought for the pt reported episodes off sadness and crying feeling frustrates, no changes in sleep or appetite, denied any perceptual disturbances, denied any thoughts of harming the infant denied any changes in ability to connect with him on the other hand she wishes she does not have the pain so she can attend more to his needs , pt denied any current suicidal or homicidal ideation Past Patient History - Past Medical History & Family History Past Medical History?: No - Past Social History Alcohol: None Drugs: Denies - CARDIAC Hx Hypertension: No - PULMONARY Hx Respiratory Disorders: No - NEUROLOGICAL Hx Neurological Disorder: No - HEENT Hx HEENT Problems: No - RENAL Hx Chronic Kidney Disease: No - ENDOCRINE/METABOLIC Hx Endocrine Disorders: No - HEMATOLOGICAL/ONCOLOGICAL Hx Human Immunodeficiency Virus (HIV): No - INTEGUMENTARY Hx Dermatological Problems: No - MUSCULOSKELETAL/RHEUMATOLOGICAL Hx Musculoskeletal Disorders: No Hx Falls: No - GASTROINTESTINAL Hx Gastrointestinal Disorders: No - GENITOURINARY/GYNECOLOGICAL Hx Genitourinary Disorders: No - PSYCHIATRIC Hx Depression: No - SURGICAL HISTORY Hx Cholecystectomy: Yes - ANESTHESIA Hx Anesthesia: Yes Hx Anesthesia Reactions: No Hx Malignant Hyperthermia: No Meds Allergies/Adverse Reactions: Allergies Allergy/AdvReac Type Severity Reaction Status Date / Time No Known Allergies Allergy Verified 10/07/18 20:17 - Medications Medications: Current Medications Lactated Ringer's (Lactated Ringer's) 1,000 mls @ 250 mls/hr IV .Q4H MANFRED Last Admin: 10/08/18 09:04 Dose: 250 mls/hr Ibuprofen (Motrin Tab) 600 mg PO Q6 PRN PRN Reason: Fever >100.4 F Last Admin: 10/08/18 03:15 Dose: 600 mg Morphine Sulfate (Morphine) 2 mg IVP Q4 PRN PRN Reason: Pain, moderate (4-7) Ondansetron HCl (Zofran Inj) 4 mg IVP Q6 PRN PRN Reason: Nausea/Vomiting Physical Exam - Psychiatric Exam Additional comments: pt cooperative with inteview, speech normal, mood reported frustrated at times,affect appropriate to thought content, thought form coherent denied any current perceptual disturbances, non elicited denied suicidal or homicidal ideation alert awake ox3 Results - Vital Signs Recent Vital Signs: Last Vital Signs Temp 98.7 F 10/08/18 09:00 Pulse 81 10/08/18 09:00 Resp 18 10/08/18 09:00 BP 120/76 10/08/18 09:00 Pulse Ox 99 10/08/18 09:00 - Labs Result Diagrams: 10/08/18 06:10 10/08/18 06:10 Labs: Laboratory Results - last 24 hr 10/07/18 10/07/18 10/07/18 22:00 22:00 22:00 WBC 7.8 RBC 4.21 Hgb 12.3 Hct 37.2 MCV 88.3 MCH 29.2 MCHC 33.1 RDW 13.8 Plt Count 205 MPV 8.9 Neut % (Auto) 78.2 H Lymph % (Auto) 16.2 L [place] % (Auto) 5.1 Eos % (Auto) 0.3 Baso % (Auto) 0.2 Neut # (Auto) 6.1 Lymph # (Auto) 1.3 [place] # (Auto) 0.4 Eos # (Auto) 0.0 Baso # (Auto) 0.0 PT 12.2 INR 1.1 APTT 36.8 D-Dimer, Quantitative 688 H Sodium 140 Potassium 3.8 Chloride 103 Carbon Dioxide 26 Anion Gap 15 BUN 6 L Creatinine 0.7 Est GFR ( Amer) > 60 Est GFR (Non-Af Amer) > 60 Random Glucose 114 H Calcium 9.7 Total Bilirubin 2.4 H AST 376 H D ALT 341 H D Alkaline Phosphatase 337 H D Lactate Dehydrogenase 1324 H Total Creatine Kinase 76 Total Protein 7.7 Albumin 4.4 Globulin 3.3 Albumin/Globulin Ratio 1.3 Lipase 1157 H Urine Color Urine Clarity Urine pH Ur Specific [place] Urine Protein Urine Glucose (UA) Urine Ketones Urine Blood Urine Nitrate Urine Bilirubin Urine Urobilinogen Ur Leukocyte Esterase Urine RBC (Auto) Urine Microscopic WBC Ur Squamous Epith Cells Urine Bacteria 10/07/18 10/08/18 10/08/18 22:00 06:10 06:10 WBC 8.8 RBC 3.83 Hgb 11.1 L Hct 33.6 L MCV 87.5 MCH 29.0 MCHC 33.1 RDW 13.9 Plt Count 185 MPV Neut % (Auto) Lymph % (Auto) [place] % (Auto) Eos % (Auto) Baso % (Auto) Neut # (Auto) Lymph # (Auto) [place] # (Auto) Eos # (Auto) Baso # (Auto) PT INR APTT D-Dimer, Quantitative Sodium 139 Potassium 3.6 Chloride 107 Carbon Dioxide 23 Anion Gap 13 BUN 4 L Creatinine 0.7 Est GFR ( Amer) > 60 Est GFR (Non-Af Amer) > 60 Random Glucose 110 H Calcium 8.6 Total Bilirubin 1.4 H AST 263 H D ALT 318 H Alkaline Phosphatase 327 H Lactate Dehydrogenase Total Creatine Kinase 52 Total Protein 6.7 Albumin 3.8 Globulin 3.0 Albumin/Globulin Ratio 1.3 Lipase 128 Urine Color Yellow Urine Clarity Slighty-cloudy Urine pH 7.0 Ur Specific [place] 1.008 Urine Protein Negative Urine Glucose (UA) Neg Urine Ketones Negative Urine Blood Moderate Urine Nitrate Negative Urine Bilirubin Negative Urine Urobilinogen 1.0 Ur Leukocyte Esterase Trace Urine RBC (Auto) 21 H Urine Microscopic WBC 5 Ur Squamous Epith Cells 1 Urine Bacteria Rare Assessment & Plan - Assessment and Plan (Free Text) Assessment: adjustment disorder with depressed mood post blues Plan: pt at current mental status not dange to self or others, psychiatricaly cleared for discharge on medical clearance pt would benefit from being linked to check out visits at home b social work msw
--- NOTE | 2018-10-08 13:57 | US ---
Date of service: 10/08/2018 HISTORY: r/o obstructing stone COMPARISON: 10/03/2018. Abdominal ultrasound. 10/08/2018 CT abdomen and pelvis. 10/08/2018 MRCP. TECHNIQUE: Sonographic evaluation of the right upper quadrant of the abdomen. FINDINGS: LIVER: Measures 17.6 cm in length. Patent portal and hepatic venous systems. Portal venous flow: Hepatopetal. echogenicity of the liver parenchyma. No mass. No intrahepatic bile duct dilatation. GALLBLADDER: Status post cholecystectomy October 04, 2018. Status post cholecystectomy. No abnormality is seen in the gallbladder fossa. COMMON BILE DUCT: Measures 5.8 mm. No stones. No dilatation. PANCREAS: Unremarkable as visualized. No mass. No ductal dilatation. RIGHT KIDNEY: Measures 4.6 x 11.3 cm in length. Normal echogenicity. No calculus, mass, or hydronephrosis. AORTA: No aneurysmal dilatation. IVC: Unremarkable. OTHER FINDINGS: None . IMPRESSION: Expected finding status post recent cholecystectomy. No acute abnormalities or interval changes otherwise detected. Concordant findings (preliminary report) provided by [facility].
[2018-10-08] MEDS ORDERED: Piperacillin/Tazobact 3.375 gm Inj IVPB ONE (14:21)
[2018-10-08] MEDS: Piperacillin/Tazobact 3.375 GM in Sodium Chloride 0.9% 100 ML IVPB SCH ×2 (14:28→21:50)
[2018-10-09] MEDS: Lactated Ringer's 1,000 ML IV SCH ×4 (02:17→07:10)
[2018-10-09] MEDS: Piperacillin/Tazobact 3.375 GM in Sodium Chloride 0.9% 100 ML IVPB SCH ×4 (03:26→21:01)
[2018-10-09 07:10] LABS: BASO % 0.3 % (0.0-2.0); EOS # 0.1 K/uL (0.0-0.7); HEMOGLOBIN 10.6 g/dL (12.0-16.0); LYMPH # 1.8 K/uL (1.0-4.3); LYMPH % 20.3 % (20.0-40.0); MEAN CELL VOLUME 88.5 fl (81.0-99.0); MEAN CORPUSCULAR HEMOGLOBIN 29.1 pg (27.0-31.0); MEAN CORPUSCULAR HGB CONC 32.9 g/dL (33.0-37.0); MEAN PLATELET VOLUME 9.2 fl (7.2-11.7); MONO # 0.5 K/uL (0.0-0.8); MONO % 5.9 % (0.0-10.0); NEUT # 6.5 K/uL (1.8-7.0); NEUT % 72.5 % (50.0-75.0); RBC 3.63 Mil/uL (3.80-5.20); RED CELL DISTRIBUTION WIDTH 14.1 % (11.5-14.5); WHITE BLOOD COUNT 8.9 K/uL (4.8-10.8)
[2018-10-09 07:34] LABS: ALB/GLOB RATIO 1.3 (1.0-2.1); ALBUMIN 3.6 g/dL (3.5-5.0); ALT/SGPT 179 U/L (9-52); AST/SGOT 65 U/L (14-36); BLOOD UREA NITROGEN 5 mg/dl (7-17); CALCIUM 8.6 mg/dL (8.4-10.2); GFR NON-AFRICAN AMERICAN > 60
[2018-10-09] MEDS ORDERED: Lactated Ringer's 1,000 ML IV SCH (09:37)
--- NOTE | 2018-10-09 10:46 | CP.PCM.PN ---
Subjective - Date & Time of Evaluation Date of Evaluation: 10/09/18 Time of Evaluation: 10:43 - Subjective Subjective: Surgery Progress Note for Dr. Aleman 23F seen and evaluated at bedside this morning. No acute events overnight. No complaints this morning. Patient states her pain has completely resolved since last night and that she feels better. Denies f/c, n/v/d, SOB, CP, or urinary symptoms. Objective - Vital Signs/Intake and Output Vital Signs (last 24 hours): Temp Pulse Resp BP Pulse Ox 98.6 F 93 H 20 128/78 100 10/09/18 09:36 10/09/18 08:28 10/09/18 08:28 10/09/18 08:28 10/09/18 08:28 - Medications Medications: Current Medications Acetaminophen (Tylenol 325mg Tab) 650 mg PO Q4 PRN PRN Reason: Pain, Mild (1-3) Piperacillin Sod/Tazobactam (Sod 3.375 gm/ Sodium Chloride) 100 mls @ 100 mls/hr IVPB Q6 MANFRED; Protocol Last Admin: 10/09/18 03:26 Dose: 100 mls/hr Lactated Ringer's (Lactated Ringer's) 1,000 mls @ 100 mls/hr IV .Q10H MANFRED Stop: 10/09/18 14:00 Ibuprofen (Motrin Tab) 600 mg PO Q6 PRN PRN Reason: Fever >100.4 F Last Admin: 10/08/18 14:26 Dose: 600 mg Ondansetron HCl (Zofran Inj) 4 mg IVP Q6 PRN PRN Reason: Nausea/Vomiting Ursodiol (Actigall) 300 mg PO TID MANFRED Last Admin: 10/09/18 09:38 Dose: 300 mg - Labs Labs: 10/09/18 05:50 10/09/18 05:50 PT 12.2 Seconds (9.8-13.1) 10/07/18 22:00 INR 1.1 10/07/18 22:00 APTT 36.8 Seconds (25.6-37.1) 10/07/18 22:00 - Constitutional Appears: Well, Non-toxic, No Acute Distress - Head Exam Head Exam: ATRAUMATIC, NORMAL INSPECTION, NORMOCEPHALIC - Eye Exam Eye Exam: EOMI, PERRL - ENT Exam ENT Exam: Mucous Membranes Moist - Respiratory Exam Respiratory Exam: Clear to Ausculation Bilateral, NORMAL BREATHING PATTERN - Cardiovascular Exam Cardiovascular Exam: REGULAR RHYTHM, +S1, +S2. absent: Murmur - GI/Abdominal Exam GI & Abdominal Exam: Soft, Normal Bowel Sounds. absent: Tenderness - Neurological Exam Neurological Exam: Alert, Awake, Oriented x3 - Psychiatric Exam Psychiatric exam: Normal Affect, Normal Mood - Skin Skin Exam: Dry, Intact, Normal Color, Warm Assessment and Plan - Assessment and Plan (Free Text) Assessment: 23F s/p laparoscopic cholecystectomy POD4, readmitted for gallstone pancreatitis, resolving Plan: Patient symptoms have improved since admission ADAT Monitor diet tolerance Monitor pain Antiemetics and analgesics PRN Patient cleared for discharge from a surgical standpoint if tolerating regular diet No further surgical intervention indicated at this present time Please reconsult as needed, Thank you Arash Olmos PGY1
--- NOTE | 2018-10-09 12:07 | CP.PCM.PN ---
Subjective - Date & Time of Evaluation Date of Evaluation: 10/09/18 Time of Evaluation: 09:45 - Subjective Subjective: Patient seen and examined this AM, NAD. Patient states feeling better, denies abdominal pain, back pain, N/V now. Patient spiked a 101 fever this AM. Objective - Vital Signs/Intake and Output Vital Signs (last 24 hours): Temp Pulse Resp BP Pulse Ox 98.6 F 93 H 20 128/78 100 10/09/18 09:36 10/09/18 08:28 10/09/18 08:28 10/09/18 08:28 10/09/18 08:28 - Medications Medications: Current Medications Acetaminophen (Tylenol 325mg Tab) 650 mg PO Q4 PRN PRN Reason: Pain, Mild (1-3) Piperacillin Sod/Tazobactam (Sod 3.375 gm/ Sodium Chloride) 100 mls @ 100 mls/hr IVPB Q6 [facility]; Protocol Last Admin: 10/09/18 11:22 Dose: 100 mls/hr Ibuprofen (Motrin Tab) 600 mg PO Q6 PRN PRN Reason: Fever >100.4 F Last Admin: 10/08/18 14:26 Dose: 600 mg Ondansetron HCl (Zofran Inj) 4 mg IVP Q6 PRN PRN Reason: Nausea/Vomiting Ursodiol (Actigall) 300 mg PO TID [facility] Last Admin: 10/09/18 09:38 Dose: 300 mg - Labs Labs: 10/09/18 05:50 10/09/18 05:50 PT 12.2 Seconds (9.8-13.1) 10/07/18 22:00 INR 1.1 10/07/18 22:00 APTT 36.8 Seconds (25.6-37.1) 10/07/18 22:00 - Constitutional Appears: No Acute Distress - Head Exam Head Exam: NORMAL INSPECTION - Eye Exam Eye Exam: EOMI - ENT Exam ENT Exam: Mucous Membranes Moist - Respiratory Exam Respiratory Exam: Clear to Ausculation Bilateral - Cardiovascular Exam Cardiovascular Exam: REGULAR RHYTHM - GI/Abdominal Exam GI & Abdominal Exam: Soft. absent: Tenderness - Extremities Exam Extremities Exam: Normal Inspection - Psychiatric Exam Psychiatric exam: Normal Affect - Skin Skin Exam: Normal Color, Warm Assessment and Plan - Assessment and Plan (Free Text) Assessment: 23 yo F s/p Lap cholecystectomy on 10/05/18 presented with 3 day history of neck, bilateral shoulder and upper thoracic pain, experienced while at rest. Admitted for recurrent acute pancreatitis. Plan: CT A/P: bl basilar hypoventilatory pulm changes; mild cardiomegaly, prior cholecystectomy, mild surgical changes, fluid-filled stomach suggestive of gastroparesis; mild thickening and enhancement of CBD; nondilated biliary tree; No evidence of obstructing stone; no fluid collection or drainable abcess formation. Minimal amount of free pelvic fluid noted. Abdo US: Cholecystectomy; no other abnormality noted MRCP reveals: Postcholecystectomy change identified, mild prominence of the common hepatic duct, but not CBD. GI Dr Velez on board. Acute pancreatitis improving Lipase: 10/07-1157>10/08 -128 normalized recent hx of gallstone pancreatitis on prior admission s/p Lap cholecystectomy on 10/05/18 c/w IVF Surgery consulted Dr. Aleman: advanced today to regular diet, monitoring tolera nce of diet now GI: Dr. Velez: on board, recs appreciated Pain management: morphine f/u am labs Transaminitis AST: 179; ALT: 254; AP: 254 trending down Pt with hx lap santa 2/2 cholelithiasis/cystitis with gallstone pancreatitis. f/u labs blues vs depression Psych: Dr. Daniels consulted: recs appreciated denies current depression, SI/HI continue to monitor Back pain improving likely msk s/p cyclobenzaprine in ed c/w pain management DVT prophylaxis SCDs for now
--- NOTE | 2018-10-09 23:54 | CP.PCM.PN ---
Subjective - Date & Time of Evaluation Date of Evaluation: 10/09/18 Time of Evaluation: 23:50 - Subjective Subjective: Patient w/o abdominal abdominal pain. Back pain improving. C/o diarrhea. Objective - Vital Signs/Intake and Output Vital Signs (last 24 hours): Temp Pulse Resp BP Pulse Ox 98.3 F 75 18 121/82 97 10/09/18 17:00 10/09/18 17:00 10/09/18 17:00 10/09/18 17:00 10/09/18 17:00 - Medications Medications: Current Medications Acetaminophen (Tylenol 325mg Tab) 650 mg PO Q4 PRN PRN Reason: Pain, Mild (1-3) Piperacillin Sod/Tazobactam (Sod 3.375 gm/ Sodium Chloride) 100 mls @ 100 mls/hr IVPB Q6 MANFRED; Protocol Last Admin: 10/09/18 21:01 Dose: 100 mls/hr Ibuprofen (Motrin Tab) 600 mg PO Q6 PRN PRN Reason: Fever >100.4 F Last Admin: 10/08/18 14:26 Dose: 600 mg Loperamide HCl (Imodium) 2 mg PO Q6 PRN PRN Reason: Diarrhea Ondansetron HCl (Zofran Inj) 4 mg IVP Q6 PRN PRN Reason: Nausea/Vomiting Ursodiol (Actigall) 300 mg PO TID [facility] Last Admin: 10/09/18 16:59 Dose: 300 mg - Labs Labs: 10/09/18 05:50 10/09/18 05:50 PT 12.2 Seconds (9.8-13.1) 10/07/18 22:00 INR 1.1 10/07/18 22:00 APTT 36.8 Seconds (25.6-37.1) 10/07/18 22:00 - Head Exam Head Exam: ATRAUMATIC - Eye Exam Eye Exam: Normal appearance - ENT Exam ENT Exam: Normal Exam - Neck Exam Neck Exam: Full ROM - Respiratory Exam Respiratory Exam: Clear to Ausculation Bilateral - GI/Abdominal Exam GI & Abdominal Exam: Soft, Normal Bowel Sounds. absent: Tenderness Assessment and Plan (1) Pancreatitis Assessment & Plan: Patient's labs are much better with normalization of lipase. Tolerating diet. Will give Imodium for diarrhea. If she continues to do well may be discharged on ursodiol tomorrow. Would continue ursodiol for one month. Status: Acute
[2018-10-10] MEDS: Piperacillin/Tazobact 3.375 GM in Sodium Chloride 0.9% 100 ML IVPB SCH ×2 (03:14→09:41)
[2018-10-10 06:26] LABS: BASO % 0.3 % (0.0-2.0); EOS # 0.2 K/uL (0.0-0.7); EOS % 2.2 % (0.0-4.0); HEMOGLOBIN 10.4 g/dL (12.0-16.0); LYMPH % 26.3 % (20.0-40.0); MEAN CELL VOLUME 87.8 fl (81.0-99.0); MEAN CORPUSCULAR HEMOGLOBIN 29.3 pg (27.0-31.0); MEAN CORPUSCULAR HGB CONC 33.4 g/dL (33.0-37.0); MONO # 0.6 K/uL (0.0-0.8); MONO % 7.1 % (0.0-10.0); NEUT % 64.1 % (50.0-75.0); RBC 3.56 Mil/uL (3.80-5.20); WHITE BLOOD COUNT 7.8 K/uL (4.8-10.8)
[2018-10-10 06:38] LABS: ALB/GLOB RATIO 1.2 (1.0-2.1); ALBUMIN 3.8 g/dL (3.5-5.0); ALT/SGPT 124 U/L (9-52); AST/SGOT 29 U/L (14-36); BLOOD UREA NITROGEN 5 mg/dl (7-17); CALCIUM 8.9 mg/dL (8.4-10.2); GFR NON-AFRICAN AMERICAN > 60
[2018-10-10 07:55] VITALS: BP 121/74; PULSE 73; RESP 20; TEMP 98.1; O2SAT 100
[2018-10-10] MEDS ORDERED: Potassium Chloride 20 mEq ER Tab PO ONE (08:23)
--- NOTE | 2018-10-10 09:43 | CP.PCM.DIS ---
Provider - Provider Date of Admission: 10/08/18 02:17 Attending physician: Jarod Londono Consults: 10/08/18 03:11 Surgery [General Surgery Consult] Stat Comment: Consulting Provider: Dc Aleman Consulting Physician: Dc Aleman Reason for Consult: s/p cholecystectomy, elevated LFTs 10/08/18 03:13 Gastroenterology Consult Stat Comment: Consulting Provider: Kemar Velez Consulting Physician: Kemar Velez Reason for Consult: elevated LFTs 10/08/18 06:00 Psychiatry Consult Routine Comment: Consulting Provider: Denia Daniels Consulting Physician: Denia Daniels Reason for Consult: blues vs depression 10/08/18 18:45 Consult Routine Comment: Physician Instructions: Reason For Exam: unsure about continuing Time Spent in preparation of Discharge (in minutes): 30 Diagnosis - Discharge Diagnosis (1) Pancreatitis Status: Resolved Priority: Low (2) Abdominal pain Status: Resolved Priority: Low Hospital Course - Lab Results Lab Results: Most Recent Lab Values WBC 7.8 K/uL (4.8-10.8) 10/10/18 05:30 RBC 3.56 Mil/uL (3.80-5.20) L 10/10/18 05:30 Hgb 10.4 g/dL (12.0-16.0) L 10/10/18 05:30 Hct 31.2 % (34.0-47.0) L 10/10/18 05:30 MCV 87.8 fl (81.0-99.0) 10/10/18 05:30 MCH 29.3 pg (27.0-31.0) 10/10/18 05:30 MCHC 33.4 g/dL (33.0-37.0) 10/10/18 05:30 RDW 14.0 % (11.5-14.5) 10/10/18 05:30 Plt Count 172 K/uL (130-400) 10/10/18 05:30 MPV 9.0 fl (7.2-11.7) 10/10/18 05:30 Neut % (Auto) 64.1 % (50.0-75.0) 10/10/18 05:30 Lymph % (Auto) 26.3 % (20.0-40.0) 10/10/18 05:30 [place] % (Auto) 7.1 % (0.0-10.0) 10/10/18 05:30 Eos % (Auto) 2.2 % (0.0-4.0) 10/10/18 05:30 Baso % (Auto) 0.3 % (0.0-2.0) 10/10/18 05:30 Neut # (Auto) 5.0 K/uL (1.8-7.0) 10/10/18 05:30 Lymph # (Auto) 2.0 K/uL (1.0-4.3) 10/10/18 05:30 [place] # (Auto) 0.6 K/uL (0.0-0.8) 10/10/18 05:30 Eos # (Auto) 0.2 K/uL (0.0-0.7) 10/10/18 05:30 Baso # (Auto) 0.0 K/uL (0.0-0.2) 10/10/18 05:30 PT 12.2 Seconds (9.8-13.1) 10/07/18 22:00 INR 1.1 10/07/18 22:00 APTT 36.8 Seconds (25.6-37.1) 10/07/18 22:00 D-Dimer, Quantitative 688 ng/mlDDU (0-230) H 10/07/18 22:00 Sodium 138 mmol/l (132-148) 10/10/18 05:30 Potassium 3.2 MMOL/L (3.6-5.0) L 10/10/18 05:30 Chloride 105 mmol/L (98-107) 10/10/18 05:30 Carbon Dioxide 23 mmol/L (22-30) 10/10/18 05:30 Anion Gap 13 (10-20) 10/10/18 05:30 BUN 5 mg/dl (7-17) L 10/10/18 05:30 Creatinine 0.8 mg/dl (0.7-1.2) 10/10/18 05:30 Est GFR ( Amer) > 60 10/10/18 05:30 Est GFR (Non-Af Amer) > 60 10/10/18 05:30 Random Glucose 97 mg/dL (65-105) 10/10/18 05:30 Calcium 8.9 mg/dL (8.4-10.2) 10/10/18 05:30 Phosphorus 4.0 mg/dl (2.5-4.5) 10/09/18 05:50 Magnesium 1.7 MG/DL (1.6-2.3) 10/09/18 05:50 Total Bilirubin 0.7 mg/dl (0.2-1.3) 10/10/18 05:30 AST 29 U/L (14-36) 10/10/18 05:30 ALT 124 U/L (9-52) H D 10/10/18 05:30 Alkaline Phosphatase 207 U/L (38-126) H 10/10/18 05:30 Lactate Dehydrogenase 1324 U/L (313-618) H 10/07/18 22:00 Total Creatine Kinase 52 U/L (30-135) 10/08/18 06:10 Total Protein 6.8 G/DL (6.3-8.2) 10/10/18 05:30 Albumin 3.8 g/dL (3.5-5.0) 10/10/18 05:30 Globulin 3.0 gm/dL (2.2-3.9) 10/10/18 05:30 Albumin/Globulin Ratio 1.2 (1.0-2.1) 10/10/18 05:30 Lipase 128 U/L (23-300) 10/08/18 06:10 Urine Color Yellow (YELLOW) 10/07/18 22:00 Urine Clarity Slighty-cloudy (Clear) 10/07/18 22:00 Urine pH 7.0 (5.0-8.0) 10/07/18 22:00 Ur Specific [place] 1.008 (1.003-1.030) 10/07/18 22:00 Urine Protein Negative mg/dL (NEGATIVE) 10/07/18 22:00 Urine Glucose (UA) Neg mg/dL (NEGATIVE) 10/07/18 22:00 Urine Ketones Negative mg/dL (NEGATIVE) 10/07/18 22:00 Urine Blood Moderate (NEGATIVE) 10/07/18 22:00 Urine Nitrate Negative (NEGATIVE) 10/07/18 22:00 Urine Bilirubin Negative (NEGATIVE) 10/07/18 22:00 Urine Urobilinogen 1.0 mg/dL (0.2-1.0) 10/07/18 22:00 Ur Leukocyte Esterase Trace [place]/uL (Negative) 10/07/18 22:00 Urine RBC (Auto) 21 /hpf (0-3) H 10/07/18 22:00 Urine Microscopic WBC 5 /hpf (0-5) 10/07/18 22:00 Ur Squamous Epith Cells 1 /hpf (0-5) 10/07/18 22:00 Urine Bacteria Rare (<OCC) 10/07/18 22:00 - Hospital Course Hospital Course: 23 yr old F with PMHx gallstone pancreatitis and cholecystitis s/p cholecystectomy on 10/05/18 admitted for severe abdominal pain and acute gallstone pancreatitis. GI and surgery were consulted. Patient had MRCP which was negative for choledocholithiasis. Patients symptoms and elevated LFT's , lipase and bilirubin improved with IV fluids, IV antibiotics, pain management, ursodiol and loperamide. During this admission patient was evaluated by psychiatry for depressed mood. 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 Patient is tolerating regular PO diet and is stable for discharge with instructions to take ursodiol for 1 month. - Date & Time of H&P Date of H&P: 10/08/18 Time of H&P: 04:30 Discharge Exam - Head Exam Head Exam: ATRAUMATIC - Eye Exam Eye Exam: EOMI - ENT Exam ENT Exam: Mucous Membranes Moist - Respiratory Exam Respiratory Exam: NORMAL BREATHING PATTERN. absent: Rales, Rhonchi - Cardiovascular Exam Cardiovascular Exam: REGULAR RHYTHM, +S1, +S2 - GI/Abdominal Exam GI & Abdominal Exam: Normal Bowel Sounds, Soft. absent: Tenderness - Extremities Exam Extremities exam: full ROM - Neurological Exam Neurological exam: Alert, CN II-XII Intact, Oriented x3 - Psychiatric Exam Psychiatric exam: Normal Affect, Normal Mood - Skin Skin Exam: Dry, Normal Color, Warm Discharge Plan - Discharge Medications Prescriptions: Loperamide [Imodium] 2 mg PO Q6 PRN #12 cap PRN Reason: Diarrhea Ursodiol [Actigall] 300 mg PO TID #90 cap - Follow Up Plan Condition: STABLE Disposition: HOME/ ROUTINE Instructions: Pancreatitis (DC) Additional Instructions: Patient to follow up with Dr. Aleman 2 weeks from surgery. Call in advance to make an appointment. -Follow up in primary care clinic within 1 week ([phone]), will call patient tomorrow with scheduled appt Patient can resume a regular diet. Patient does NOT need low/reduced fat diet. Normal diet with regular fats is appropriate. Ok to shower. No pools, baths, jacuzzis for next 10 days. No heavy lifting greater than 15 lb for next 4 weeks. Tylenol or Motrin for pain. Activity as tolerated. If symptoms worsen, promptly return to nearest emergency department.
== END 2018-10-10 11:45 | disposition home or self-care (01) | DRG 282 ==
LOC: H.ER 19:43 → H.ERHOLD 10-08 02:17 → H.MEDSURG1 10-08 17:33
PROVIDERS: ADMIT Internal Medicine; ATTEND Internal Medicine
DX: K85.10 Biliary acute pancreatitis without necrosis or infection (principal); D64.89 Other specified anemias; K80.20 Calculus of gallbladder without cholecystitis without obstruction; F53.0 Postpartum depression; F43.21 Adjustment disorder with depressed mood; Z98.890 Other specified postprocedural states; Z98.891 History of uterine scar from previous surgery